=== PATIENT | male | born 1945 | race Two or more races ===

== ENCOUNTER 2018-08-14 19:59 | Inpatient (IN) | payer OTHER, MEDICAID ==
--- NOTE | 2018-08-14 20:23 | ED Physician Chart ---
ED Chief Complaint/HPI - Patient Information Date Seen:: 08/14/18 Time Seen:: 20:23 Chief Complaint:: Agitation History of Present Illness:: 73 yo male was brought from SNF to ER for evaluation of increased agitation and aggressive behavior at SNF. Patient was agitated and trying to get out of bed at ER. Allergies:: Allergies Allergy/AdvReac Type Severity Reaction Status Date / Time No Known Allergies Allergy Verified 08/14/18 20:14 Vitals:: Vital Signs - 8 hr 08/14/18 20:00 Temp 97.9 F HR 89 RR 18 BP 130/68 O2 Sat % 97 ED Review of Systems - Review of Systems General/Constitutional: No fever Skin: No rash Head: No headache Eyes: No pain ENT: No nasal drainage Neck: No neck pain Cardio Vascular: No chest pain Pulmonary: No SOB GI: No nausea, No vomiting ED Past Medical History - Past Medical History Past Medical History: HTN, Other (metabolic encephalopathy, chronic liver disease, BPH) Social History: Non Smoker, No Alcohol (former drinker), No Drug Use (former drug user) Surgical History: other (Right ulnar fracture) Psychiatricy History: Dementia, Other (Anxiety, Psychosis) Family Medical History - Family Member Mother History Unknown: Yes Ethnicity: ED Physical Exam - Physical Examination General/Constitutional: Awake Head: Atraumatic Eyes: PERRL Skin: No skin lesions ENMT: Nasal exam nl Neck: No nuchal rigidity Respiratory: No Wheeze/Rhonchi/Rales Cardio Vascular: RRR, No murmur, gallop, rubs, NL S1 S2 GI: No tenderness/rebounding/guarding Extremities: normal strength in all extremities Neuro/Psych: Normal motor strength ED Labs/Radiology/EKG Results - Lab Results Results: Laboratory Last Values WBC 6.6 Th/cmm (4.8-10.8) 08/14/18 20:30 RBC 3.96 Mil/cmm (3.80-5.80) 08/14/18 20:30 Hgb 11.6 gm/dL (12-16) L 08/14/18 20:30 Hct 35.2 % (41.0-60) L 08/14/18 20:30 MCV 88.9 fl (80-99) 08/14/18 20:30 MCH 29.3 pg (27.0-31.0) 08/14/18 20:30 MCHC Differential 33.0 pg (28.0-36.0) 08/14/18 20:30 RDW 12.0 % (11.5-20.0) 08/14/18 20:30 Plt Count 252 Th/cmm (150-400) 08/14/18 20:30 MPV 8.3 fl 08/14/18 20:30 Neutrophils % 74.6 % (40.0-80.0) 08/14/18 20:30 Lymphocytes % 15.0 % (20.0-50.0) L 08/14/18 20:30 Monocytes % 8.8 % (2.0-10.0) 08/14/18 20:30 Eosinophils % 0.9 % (0.0-5.0) 08/14/18 20:30 Basophils % 0.7 % (0.0-2.0) 08/14/18 20:30 Sodium 135 mEq/L (136-145) L 08/14/18 20:30 Potassium 3.7 mEq/L (3.5-5.1) 08/14/18 20:30 Chloride 104 mEq/L (98-107) 08/14/18 20:30 Carbon Dioxide 24.8 mEq/L (21.0-31.0) 08/14/18 20:30 Anion Gap 9.9 (7.0-16.0) 08/14/18 20:30 BUN 14 mg/dL (7-25) 08/14/18 20:30 Creatinine 0.6 mg/dL (0.7-1.3) L 08/14/18 20:30 Est GFR ( Amer) TNP 08/14/18 20:30 Est GFR (Non-Af Amer) TNP 08/14/18 20:30 BUN/Creatinine Ratio 23.3 08/14/18 20:30 Glucose 204 mg/dL (70-105) H 08/14/18 20:30 Calcium 8.9 mg/dL (8.6-10.3) 08/14/18 20:30 Total Bilirubin 1.2 mg/dL (0.3-1.0) H 08/14/18 20:30 AST 38 U/L (13-39) 08/14/18 20:30 ALT 28 U/L (7-52) 08/14/18 20:30 Alkaline Phosphatase 106 U/L (34-104) H 08/14/18 20:30 Troponin I 0.03 ng/mL (0.01-0.05) 08/14/18 20:30 B-Natriuretic Peptide 44.2 pg/mL (5.0-100.0) 08/14/18 20:30 Total Protein 6.7 gm/dL (6.0-8.3) 08/14/18 20:30 Albumin 3.5 gm/dL (4.2-5.5) L 08/14/18 20:30 Globulin 3.2 gm/dL 08/14/18 20:30 Albumin/Globulin Ratio 1.1 (1.0-1.8) 08/14/18 20:30 Triglycerides 61 mg/dL (<150) 08/14/18 20:30 Cholesterol 114 mg/dL (<200) 08/14/18 20:30 LDL Cholesterol Direct 72 mg/dL (75-193) L 08/14/18 20:30 HDL Cholesterol 33 mg/dL (23-92) 08/14/18 20:30 TSH 1.20 uIU/ml (0.34-5.60) 08/14/18 20:30 - Radiology Results Results: CXR: no focal consolidation - EKG Interpretations EKG Time:: 20:24 Rate & Rhythm: 89 bpm, sinus rhythm [place]: Normal Intervals: [place] 132, QRS 87 ED Assessment - Assessment General Assessment: Hypertension Normocytic anemia Dementia Psychosis Assessment/Comments:: CBC, CMP, Trop I, BNP, UA EKG, CXR [facility] and management ED Septic Shock - . Is Septic Shock (SBP<90, OR Lactate>4 mmol\L) present?: No - <6hrs of presentation: Vital Signs: Vital Signs - 8 hr 08/14/18 20:00 Temp 97.9 F HR 89 RR 18 BP 130/68 O2 Sat % 97 ED Reassessment (Disposition) - Reassessment Reassessment Condition:: Unchanged - Patient Disposition Discharge/Transfer:: [facility] w/in this hosp Admitting Medical Physician:: Dex Bella Admitting Psych Physician:: Severo Chaidez
[2018-08-14 20:44] LABS: % BASOPHILS 0.7 % (0.0-2.0); % EOSINOPHILS 0.9 % (0.0-5.0); % MONOCYTES 8.8 % (2.0-10.0); % NEUTROPHILS 74.6 % (40.0-80.0); EOSINOPHILE ABSOLUTE 0.1 Th/cmm (0.1-0.4); HEMATOCRIT 35.2 % (41.0-60); HEMOGLOBIN 11.6 gm/dL (12-16); MEAN CELL VOLUME 88.9 fl (80-99); MEAN CORPUSCULAR HEMOGLOBIN 29.3 pg (27.0-31.0); MEAN PLATELET VOLUME 8.3 fl; MONOCYTE ABSOLUTE 0.6 Th/cmm (0.3-1.0); NEUTROPHILE ABSOLUTE 4.9 Th/cmm (1.8-8.0); PLATELET COUNT 252 Th/cmm (150-400); RED BLOOD COUNT 3.96 Mil/cmm (3.80-5.80); WHITE BLOOD COUNT 6.6 Th/cmm (4.8-10.8)
[2018-08-14 20:58] LABS: ALB/GLOB RATIO 1.1 (1.0-1.8); ALBUMIN 3.5 gm/dL (4.2-5.5); ALKALINE PHOSPHATASE 106 U/L (34-104); ANION GAP 9.9 (7.0-16.0); BILIRUBIN,TOTAL 1.2 mg/dL (0.3-1.0); BUN - UREA NITROGEN 14 mg/dL (7-25); CALCIUM SERUM 8.9 mg/dL (8.6-10.3); CARBON DIOXIDE 24.8 mEq/L (21.0-31.0); CHLORIDE 104 mEq/L (98-107); CREATININE - SERUM 0.6 mg/dL (0.7-1.3); GLUCOSE 204 mg/dL (70-105); POTASSIUM SERUM 3.7 mEq/L (3.5-5.1); SGOT 38 U/L (13-39); SGPT/ALT 28 U/L (7-52); SODIUM SERUM 135 mEq/L (136-145); TOTAL PROTEIN,SERUM 6.7 gm/dL (6.0-8.3)
[2018-08-14 22:14] VITALS: BP 147/68
[2018-08-14] MEDS ORDERED: Magnesium Hydroxide (MOM) 30 mL UDC PO PRN (22:30)
[2018-08-14] MEDS ORDERED: Maalox 30 mL Cup PO PRN (22:30)
[2018-08-14 23:10] LABS: CHOLESTEROL 114 mg/dL (<200); HDL -HIGH DENSITY LIPOPROTEIN 33 mg/dL (23-92); TRIGLYCERIDES 61 mg/dL (<150)
--- NOTE | 2018-08-15 08:15 | Diagnostic Imaging Report ---
Portable chest x-ray HISTORY: Shortness of breath The overall heart size is difficult to assess with portable technique in a poor inspiration. Atherosclerotic calcification seen through the aorta. No acute focal pulmonary processes. Diffuse degenerative changes seen to the spine. IMPRESSION: 1. No acute focal pulmonary processes 2. Atherosclerotic vascular changes
--- NOTE | 2018-08-15 08:58 | History and Physical ---
History of Present Illness - HPI Chief Complaint: increased agitation and change of behavior HPI: 73 y/o male who presents to [facility] ER from SNF for a change in behavior noted by the staff. Patient was noted to have increased agitation and was subsequently sent to the ER for further evaluation. Patient has a history of HTN, metabolic encephalopathy, chronic liver disease, BPH, anxiety, psychosis. Patient had intial labs done in the ER which revealed the following WBC 6.6 H/H 11.6/35.2 plat 252K Na 135 K 3.7 BUN/Cr 14/0.6 glu 204 Vital Signs: Last Vital Signs Temp 99.3 F 08/15/18 06:42 Pulse 92 08/15/18 06:42 Resp 20 08/15/18 06:42 BP 125/77 08/15/18 06:42 Pulse Ox 95 08/15/18 06:42 Past Medical History Cardiovascular: Report: HTN Pulmonary: Report: No Pertinent Hx REGULATORY ASSISTANT: Report: No Pertinent Hx, Other (metabolic encephalopathy) GI: Report: No Pertinent Hx Psych: Report: Anxiety, Depression, Psychosis Musculoskeletal: Report: No Pertinent Hx, Other (right ulnar fracture) Rheumatologic: Report: No pertinent Hx Renal/: Report: Other (BPH) Endocrine: Report: No Pertinent Hx Dermatology: Report: No Pertinent Hx Other History: chronic liver disease - Past Surgical History Past Surgical History: No pertinent Hx Family Medical History - Family Member Mother History Unknown: Yes Ethnicity: Hx Family Cancer: (unknown) Hx Family Coronary Artery Disease: (unknown) Hx Family Congestive Heart Failure: (unknown) Hx Family Hypertension: (unknown) Hx Family Stroke: (unknown') Hx Family Diabetes: (unknown) Hx Family Seizures: (unknown) Hx Family Dementia: (unknown) Hx Family AIDS: (unknown) Hx Family HIV: No Hx Family COPD: (unknown) Hx Family Hepatitis: (unknown) Hx Family Psychiatric Problems: (unknown) Hx Family Tuberculosis: (unknown) Social History Smoke: No Alcohol: None Drugs: None Lives: Shelter - Medications Home Medications: Home Medication Medication Instructions Recorded Type Acetaminophen [Tylenol] 650 mg PO Q4HR PRN 08/14/18 History Amlodipine Besylate 10 mg PO DAILY 08/14/18 History Aspirin [Ecotrin] 81 mg PO DAILY 08/14/18 History Calcium Carbonate/Vitamin D3 500 mg PO BID 08/14/18 History [Chewable Calcium] Cholecalciferol (Vitamin D3) 1 tab PO DAILY 08/14/18 History [Vitamin D3] Clonazepam [Klonopin] 0.5 mg PO BID 08/14/18 History Docusate Sodium [Colace] 100 mg PO BID 08/14/18 History Donepezil Hcl [Aricept] 5 mg PO DAILY 08/14/18 History Lisinopril 40 mg PO DAILY 08/14/18 History Lorazepam [Ativan] 1 mg PO BID PRN 08/14/18 History Multivitamin w/ Minerals 1 tab PO DAILY 08/14/18 History [Theragran M] QUEtiapine Fumarate [SEROquel] 50 mg PO BID 08/14/18 History QUEtiapine Fumarate [SEROquel] 100 mg PO HS 08/14/18 History Tamsulosin [Flomax] 0.4 mg PO HS 08/14/18 History Thiamine [Vitamin B1] 100 mg PO DAILY 08/14/18 History traMADol HCl [Ultram*] 25 mg PO Q6HR PRN 08/14/18 History - Allergies Allergies/Adverse Reactions: Allergies Allergy/AdvReac Type Severity Reaction Status Date / Time No Known Allergies Allergy Verified 08/14/18 20:14 Review of Systems - Review of Systems Constitutional: Report: No Significant Eyes: Report: No Significant ENT: Report: No Significant Respiratory: Report: No Significant Cardiovascular: Report: No Significant Gastrointestinal: Report: No Significant Genitourinary: Report: No Significant Musculoskeletal: Report: No Significant Skin: Report: No Significant Neurological: Report: No Significant Physical Exam - Physical Exam HEENT: Report: Ears Nose Throat within normal limits, Pharnyx within normal limits Neck: Report: Within normal limits Cardiovascular Systems: Report: +s1/s2 noted, Regular, Rate and Rhythm Respiratory: Report: Breath Sounds are within normal limits Abdomen: Report: Non-tender to palpation Back: Report: Inspection of back is within normal limits. Extremities: Report: Non-tender to palpation. Skin: Report: Color of skin is within normal limits - Lab Results All Lab Results last 24 hours: Laboratory Results - last 24 hr 08/14/18 08/14/18 08/14/18 20:30 20:30 20:30 WBC 6.6 RBC 3.96 Hgb 11.6 L Hct 35.2 L MCV 88.9 MCH 29.3 MCHC Differential 33.0 RDW 12.0 Plt Count 252 MPV 8.3 Neutrophils % 74.6 Lymphocytes % 15.0 L Monocytes % 8.8 Eosinophils % 0.9 Basophils % 0.7 Sodium 135 L Potassium 3.7 Chloride 104 Carbon Dioxide 24.8 Anion Gap 9.9 BUN 14 Creatinine 0.6 L Est GFR ( Amer) TNP Est GFR (Non-Af Amer) TNP BUN/Creatinine Ratio 23.3 Glucose 204 H Calcium 8.9 Total Bilirubin 1.2 H AST 38 ALT 28 Alkaline Phosphatase 106 H Troponin I B-Natriuretic Peptide 44.2 Total Protein 6.7 Albumin 3.5 L Globulin 3.2 Albumin/Globulin Ratio 1.1 Triglycerides Cholesterol LDL Cholesterol Direct HDL Cholesterol TSH 08/14/18 08/14/18 08/14/18 20:30 20:30 20:30 WBC RBC Hgb Hct MCV MCH MCHC Differential RDW Plt Count MPV Neutrophils % Lymphocytes % Monocytes % Eosinophils % Basophils % Sodium Potassium Chloride Carbon Dioxide Anion Gap BUN Creatinine Est GFR ( Amer) Est GFR (Non-Af Amer) BUN/Creatinine Ratio Glucose Calcium Total Bilirubin AST ALT Alkaline Phosphatase Troponin I 0.03 B-Natriuretic Peptide Total Protein Albumin Globulin Albumin/Globulin Ratio Triglycerides 61 Cholesterol 114 LDL Cholesterol Direct 72 L HDL Cholesterol 33 TSH 1.20 - Assessment Assessment: psychosis HTN metabolic encephalopathy chronic liver disease BPH right ulnar fracture dementia anxiety psychosis - Plan Plan: [facility] continue current orders
[2018-08-15] MEDS ORDERED: Non-Formulary Item 1 EA (Lisinopril [Lisinopril] 40 MG) PO SCH (09:00)
[2018-08-15] MEDS ORDERED: Calcium Carb/Vit D 500 mg/200 U Tab PO SCH (09:00)
[2018-08-15] MEDS: Multivitamin w/ Minerals Tab PO SCH (09:31)
[2018-08-15] MEDS: Vitamin D3 2,000 IU SGL PO SCH (09:31)
[2018-08-15] MEDS: Calcium Carb/Vit D 500 mg/200 U Tab PO SCH ×2 (09:47→17:54)
[2018-08-15 10:35] LABS: CHOLESTEROL 125 mg/dL (<200); HDL -HIGH DENSITY LIPOPROTEIN 35 mg/dL (23-92); TRIGLYCERIDES 85 mg/dL (<150)
[2018-08-15] MEDS: INSULIN ASPART SLIDING SCALE 100 UNITS/ML UNIT SUBQ SCH ×3 (12:33→22:18)
[2018-08-16] MEDS: INSULIN ASPART SLIDING SCALE 100 UNITS/ML UNIT SUBQ SCH ×4 (06:41→21:21)
[2018-08-16] MEDS: Lactulose 10 Gm/15 mL 30mL UDC PO SCH (10:01)
[2018-08-16] MEDS: Vitamin D3 2,000 IU SGL PO SCH (10:04)
[2018-08-16] MEDS: Calcium Carb/Vit D 500 mg/200 U Tab PO SCH ×2 (10:05→17:05)
[2018-08-16] MEDS: Multivitamin w/ Minerals Tab PO SCH (10:05)
--- NOTE | 2018-08-17 05:30 | General Progress Note ---
Subjective - Review of Systems Service Date: 08/16/18 Subjective: Awake, alert, but confused Objective - Results Result Diagrams: 08/14/18 20:30 08/14/18 20:30 Recent Labs: Laboratory Last Values WBC 6.6 Th/cmm (4.8-10.8) 08/14/18 20:30 RBC 3.96 Mil/cmm (3.80-5.80) 08/14/18 20:30 Hgb 11.6 gm/dL (12-16) L 08/14/18 20:30 Hct 35.2 % (41.0-60) L 08/14/18 20:30 MCV 88.9 fl (80-99) 08/14/18 20:30 MCH 29.3 pg (27.0-31.0) 08/14/18 20:30 MCHC Differential 33.0 pg (28.0-36.0) 08/14/18 20:30 RDW 12.0 % (11.5-20.0) 08/14/18 20:30 Plt Count 252 Th/cmm (150-400) 08/14/18 20:30 MPV 8.3 fl 08/14/18 20:30 Neutrophils % 74.6 % (40.0-80.0) 08/14/18 20:30 Lymphocytes % 15.0 % (20.0-50.0) L 08/14/18 20:30 Monocytes % 8.8 % (2.0-10.0) 08/14/18 20:30 Eosinophils % 0.9 % (0.0-5.0) 08/14/18 20:30 Basophils % 0.7 % (0.0-2.0) 08/14/18 20:30 Sodium 135 mEq/L (136-145) L 08/14/18 20:30 Potassium 3.7 mEq/L (3.5-5.1) 08/14/18 20:30 Chloride 104 mEq/L (98-107) 08/14/18 20:30 Carbon Dioxide 24.8 mEq/L (21.0-31.0) 08/14/18 20:30 Anion Gap 9.9 (7.0-16.0) 08/14/18 20:30 BUN 14 mg/dL (7-25) 08/14/18 20:30 Creatinine 0.6 mg/dL (0.7-1.3) L 08/14/18 20:30 Est GFR ( Amer) TNP 08/14/18 20:30 Est GFR (Non-Af Amer) TNP 08/14/18 20:30 BUN/Creatinine Ratio 23.3 08/14/18 20:30 Glucose 204 mg/dL (70-105) H 08/14/18 20:30 Calcium 8.9 mg/dL (8.6-10.3) 08/14/18 20:30 Total Bilirubin 1.2 mg/dL (0.3-1.0) H 08/14/18 20:30 AST 38 U/L (13-39) 08/14/18 20:30 ALT 28 U/L (7-52) 08/14/18 20:30 Alkaline Phosphatase 106 U/L (34-104) H 08/14/18 20:30 Ammonia 61 umol/L (16-53) H 08/15/18 09:47 Troponin I 0.03 ng/mL (0.01-0.05) 08/14/18 20:30 B-Natriuretic Peptide 44.2 pg/mL (5.0-100.0) 08/14/18 20:30 Total Protein 6.7 gm/dL (6.0-8.3) 08/14/18 20:30 Albumin 3.5 gm/dL (4.2-5.5) L 08/14/18 20:30 Globulin 3.2 gm/dL 08/14/18 20:30 Albumin/Globulin Ratio 1.1 (1.0-1.8) 08/14/18 20:30 Triglycerides 85 mg/dL (<150) 08/15/18 09:47 Cholesterol 125 mg/dL (<200) 08/15/18 09:47 LDL Cholesterol Direct 74 mg/dL (75-193) L 08/15/18 09:47 HDL Cholesterol 35 mg/dL (23-92) 08/15/18 09:47 TSH 1.20 uIU/ml (0.34-5.60) 08/14/18 20:30 - Physical Exam Vitals and I&O: Vital Signs Temp 98.8 F 08/16/18 22:00 Pulse 91 08/16/18 22:00 Resp 18 08/16/18 22:00 BP 92/55 08/16/18 22:00 Pulse Ox 91 08/16/18 22:00 Intake & Output 08/16/18 08/16/18 08/17/18 06:59 18:59 06:59 Intake Total 100 500 Balance 100 500 Intake: Oral 100 500 Other: # Voids 1 3 # Bowel Movements 0 Active Medications: Current Medications Acetaminophen (Tylenol) 650 mg PO Q4HR PRN PRN Reason: Pain (Moderate) Stop: 10/13/18 22:37 Al Hydrox/Mg Hydrox/Simethicone (Maalox) 30 ml PO Q4HR PRN PRN Reason: GI DISTRESS Stop: 10/13/18 22:29 Amlodipine Besylate (Norvasc) 10 mg PO DAILY [facility] Stop: 10/14/18 08:59 Last Admin: 08/16/18 10:03 Dose: 10 mg Aspirin (Ecotrin) 81 mg PO DAILY [facility] Stop: 10/14/18 08:59 Last Admin: 08/16/18 10:05 Dose: 81 mg Calcium/Vitamin D (Oscal W/Vitamin D) 1 tab PO BID [facility] Stop: 10/14/18 09:44 Last Admin: 08/16/18 17:05 Dose: 1 tab Clonazepam (Klonopin) 0.5 mg PO TID [facility]; Protocol Stop: 10/14/18 08:59 Last Admin: 08/16/18 21:23 Dose: 0.5 mg Docusate Sodium (Colace) 100 mg PO BID [facility] Stop: 10/14/18 08:59 Last Admin: 08/16/18 17:05 Dose: 100 mg Donepezil HCl (Aricept) 5 mg PO DAILY [facility] Stop: 10/14/18 08:59 Last Admin: 08/16/18 10:04 Dose: 5 mg Insulin Aspart (Novolog Insulin Sliding Scale) 0 units SUBQ ACHS [facility]; Protocol Stop: 10/14/18 11:29 Last Admin: 08/16/18 21:21 Dose: 2 units Lactulose (Cephulac) 15 gm PO DAILY [facility] Stop: 10/15/18 08:59 Last Admin: 08/16/18 10:01 Dose: 15 gm Lisinopril (Zestril) 40 mg PO DAILY [facility] Stop: 10/14/18 08:59 Last Admin: 08/16/18 10:03 Dose: 40 mg Lorazepam (Ativan) 1 mg PO BID PRN; Protocol PRN Reason: Anxiety Stop: 10/13/18 22:37 Last Admin: 08/15/18 01:16 Dose: 1 mg Magnesium Hydroxide (Milk Of Magnesia) 30 ml PO HS PRN PRN Reason: Constipation Quetiapine Fumarate (Seroquel) 12.5 mg PO TID [facility]; Protocol Stop: 10/14/18 08:59 Last Admin: 08/16/18 21:24 Dose: 12.5 mg Quetiapine Fumarate (Seroquel) 25 mg PO HS [facility]MO; Protocol Stop: 10/14/18 20:59 Last Admin: 08/16/18 21:30 Dose: 25 mg Tamsulosin HCl (Flomax) 0.4 mg PO HS [facility]MO Stop: 10/14/18 20:59 Last Admin: 08/16/18 21:23 Dose: 0.4 mg Thiamine HCl (Vitamin B1) 100 mg PO DAILY [facility] Stop: 10/14/18 08:59 Last Admin: 08/16/18 10:06 Dose: 100 mg Tramadol HCl (Ultram) 25 mg PO Q6HR PRN PRN Reason: Pain (Severe) (LEVEL 7-10) Stop: 10/13/18 22:37 Vitamin D (Vitamin D3) 2,000 iu PO DAILY [facility] Stop: 10/14/18 08:59 Last Admin: 08/16/18 10:04 Dose: 2,000 iu Zolpidem Tartrate (Ambien) 5 mg PO HS PRN PRN Reason: Insomnia Stop: 10/13/18 22:29 General: Alert HEENT: Atraumatic, PERRLA, EOMI Neck: Supple, no JVD Cardiovascular: Regular rate, Normal S1, Normal S2 Lungs: Clear to auscultation Abdomen: Bowel sounds, Soft Extremities: no Clubbing, no Cyanosis, no Edema Assessment/Plan - Assessment Assessment: psychosis HTN metabolic encephalopathy chronic liver disease BPH right ulnar fracture dementia anxiety - Plan Plan: admit to [facility] continue current orders Nutritional Asmnt/Malnutr-PDOC - Dietary Evaluation Malnutrition Findings (Please click <Entered> for more info): Nutritional Asmnt/Malnutrition Start: 08/15/18 14: 11 Text: Status: Complete Freq: Protocol: Document 08/15/18 14:11 LCDASHG (Rec: 08/15/18 14:29 [email or web address] [id number]) Nutritional Asmnt/Malnutrition Patient General Information Nutritional Screening High Risk Diagnosis psychosis, confusion Pertinent Medical Hx/Surgical Hx HTN, metabolic encephalopathy, chronic liver disease, BPH, right ulnar fracture, dementia , anxiety, psychosis Subjective Information Pt seen in [facility] in the [place], very confused, not able to communicate. Per SENIOR NETWORK SECURITY ARCHITECT, pt consumed about 50% of breakfast today. Pt needs total assist with meals. blood sugar 204 at admission noted. Current Diet Order/ Nutrition Support pureed Pertinent Medications oscal w/vit D, colace, novolog , seroquel, vit B1, vit D3 Pertinent Labs 08/14 Na 135, Cr 0.6, glucose 204, alb 3.5 Nutritional Hx/Data Height 1.6 m Height (Calculated Centimeters) 160.0 Current Weight (lbs) 54.431 kg Weight (Calculated Kilograms) 54.4 Weight (Calculated Grams) 63047.1 Colver Body Weight 124 Body Mass Index (BMI) 21.2 Weight Status Approriate GI Symptoms GI Symptoms None Last BM 08/14 Difficult in: None Skin Integrity/Comment: intact Current %PO Fair (50-74%) Estimated Nutritional Goals BEE in Kcals: Using Current wt Calories/Kcals/Kg 25-30 Kcals Calculated [id number] Protein: Using Current wt Protein g/k Protein Calculated 55 Fluid: ml 1375-1650ml (1ml/kcal) Nutritional Problem 1. Problem Problem altered nutrition related labs Etiology hyperglycemia Signs/Symptoms: glucose 204 at admission Malnutrition Alert Is there a minimum of two criteria No selected? Query Text:Check all the applicable criteria. A minimum of two criteria are recommended for diagnosis of either severe or non-severe malnutrition. Malnutrition Related to Morbid Obesity Malnutrition related to morbid obesity No Intervention/Recommendation Comments 1. Continue with pureed diet as ordered. Monitor blood sugar. Consider NCS/CCHO diet if glucose continue high. 2. Monitor PO intake, wt, labs and skin integrity 3. F/U as moderate risk in 3-5 days, 08/18-08/20, PO check Expected Outcomes/Goals Expected Outcomes/Goals 1. PO intake to meet at least 75% of nutritional needs. 2. Wt stability, skin to remain intact, labs to approach WNL.
--- NOTE | 2018-08-17 05:31 | General Progress Note ---
Subjective - Review of Systems Service Date: 08/17/18 Subjective: Awake, alert, but confused. T 98.8 P 91 BP 92/55 R 67 Objective - Results Result Diagrams: 08/14/18 20:30 08/14/18 20:30 Recent Labs: Laboratory Last Values WBC 6.6 Th/cmm (4.8-10.8) 08/14/18 20:30 RBC 3.96 Mil/cmm (3.80-5.80) 08/14/18 20:30 Hgb 11.6 gm/dL (12-16) L 08/14/18 20:30 Hct 35.2 % (41.0-60) L 08/14/18 20:30 MCV 88.9 fl (80-99) 08/14/18 20:30 MCH 29.3 pg (27.0-31.0) 08/14/18 20:30 MCHC Differential 33.0 pg (28.0-36.0) 08/14/18 20:30 RDW 12.0 % (11.5-20.0) 08/14/18 20:30 Plt Count 252 Th/cmm (150-400) 08/14/18 20:30 MPV 8.3 fl 08/14/18 20:30 Neutrophils % 74.6 % (40.0-80.0) 08/14/18 20:30 Lymphocytes % 15.0 % (20.0-50.0) L 08/14/18 20:30 Monocytes % 8.8 % (2.0-10.0) 08/14/18 20:30 Eosinophils % 0.9 % (0.0-5.0) 08/14/18 20:30 Basophils % 0.7 % (0.0-2.0) 08/14/18 20:30 Sodium 135 mEq/L (136-145) L 08/14/18 20:30 Potassium 3.7 mEq/L (3.5-5.1) 08/14/18 20:30 Chloride 104 mEq/L (98-107) 08/14/18 20:30 Carbon Dioxide 24.8 mEq/L (21.0-31.0) 08/14/18 20:30 Anion Gap 9.9 (7.0-16.0) 08/14/18 20:30 BUN 14 mg/dL (7-25) 08/14/18 20:30 Creatinine 0.6 mg/dL (0.7-1.3) L 08/14/18 20:30 Est GFR ( Amer) TNP 08/14/18 20:30 Est GFR (Non-Af Amer) TNP 08/14/18 20:30 BUN/Creatinine Ratio 23.3 08/14/18 20:30 Glucose 204 mg/dL (70-105) H 08/14/18 20:30 Calcium 8.9 mg/dL (8.6-10.3) 08/14/18 20:30 Total Bilirubin 1.2 mg/dL (0.3-1.0) H 08/14/18 20:30 AST 38 U/L (13-39) 08/14/18 20:30 ALT 28 U/L (7-52) 08/14/18 20:30 Alkaline Phosphatase 106 U/L (34-104) H 08/14/18 20:30 Ammonia 61 umol/L (16-53) H 08/15/18 09:47 Troponin I 0.03 ng/mL (0.01-0.05) 08/14/18 20:30 B-Natriuretic Peptide 44.2 pg/mL (5.0-100.0) 08/14/18 20:30 Total Protein 6.7 gm/dL (6.0-8.3) 08/14/18 20:30 Albumin 3.5 gm/dL (4.2-5.5) L 08/14/18 20:30 Globulin 3.2 gm/dL 08/14/18 20:30 Albumin/Globulin Ratio 1.1 (1.0-1.8) 08/14/18 20:30 Triglycerides 85 mg/dL (<150) 08/15/18 09:47 Cholesterol 125 mg/dL (<200) 08/15/18 09:47 LDL Cholesterol Direct 74 mg/dL (75-193) L 08/15/18 09:47 HDL Cholesterol 35 mg/dL (23-92) 08/15/18 09:47 TSH 1.20 uIU/ml (0.34-5.60) 08/14/18 20:30 - Physical Exam Vitals and I&O: Vital Signs Temp 98.8 F 08/16/18 22:00 Pulse 91 08/16/18 22:00 Resp 18 08/16/18 22:00 BP 92/55 08/16/18 22:00 Pulse Ox 91 08/16/18 22:00 Intake & Output 08/16/18 08/16/18 08/17/18 06:59 18:59 06:59 Intake Total 100 500 Balance 100 500 Intake: Oral 100 500 Other: # Voids 1 3 # Bowel Movements 0 Active Medications: Current Medications Acetaminophen (Tylenol) 650 mg PO Q4HR PRN PRN Reason: Pain (Moderate) Stop: 10/13/18 22:37 Al Hydrox/Mg Hydrox/Simethicone (Maalox) 30 ml PO Q4HR PRN PRN Reason: GI DISTRESS Stop: 10/13/18 22:29 Amlodipine Besylate (Norvasc) 10 mg PO DAILY [facility] Stop: 10/14/18 08:59 Last Admin: 08/16/18 10:03 Dose: 10 mg Aspirin (Ecotrin) 81 mg PO DAILY [facility] Stop: 10/14/18 08:59 Last Admin: 08/16/18 10:05 Dose: 81 mg Calcium/Vitamin D (Oscal W/Vitamin D) 1 tab PO BID [facility] Stop: 10/14/18 09:44 Last Admin: 08/16/18 17:05 Dose: 1 tab Clonazepam (Klonopin) 0.5 mg PO TID [facility]; Protocol Stop: 10/14/18 08:59 Last Admin: 08/16/18 21:23 Dose: 0.5 mg Docusate Sodium (Colace) 100 mg PO BID [facility] Stop: 10/14/18 08:59 Last Admin: 08/16/18 17:05 Dose: 100 mg Donepezil HCl (Aricept) 5 mg PO DAILY [facility] Stop: 10/14/18 08:59 Last Admin: 08/16/18 10:04 Dose: 5 mg Insulin Aspart (Novolog Insulin Sliding Scale) 0 units SUBQ ACHS [facility]; Protocol Stop: 10/14/18 11:29 Last Admin: 08/16/18 21:21 Dose: 2 units Lactulose (Cephulac) 15 gm PO DAILY [facility] Stop: 10/15/18 08:59 Last Admin: 08/16/18 10:01 Dose: 15 gm Lisinopril (Zestril) 40 mg PO DAILY [facility] Stop: 10/14/18 08:59 Last Admin: 08/16/18 10:03 Dose: 40 mg Lorazepam (Ativan) 1 mg PO BID PRN; Protocol PRN Reason: Anxiety Stop: 10/13/18 22:37 Last Admin: 08/15/18 01:16 Dose: 1 mg Magnesium Hydroxide (Milk Of Magnesia) 30 ml PO HS PRN PRN Reason: Constipation Quetiapine Fumarate (Seroquel) 12.5 mg PO TID [facility]; Protocol Stop: 10/14/18 08:59 Last Admin: 08/16/18 21:24 Dose: 12.5 mg Quetiapine Fumarate (Seroquel) 25 mg PO HS [facility]; Protocol Stop: 10/14/18 20:59 Last Admin: 08/16/18 21:30 Dose: 25 mg Tamsulosin HCl (Flomax) 0.4 mg PO HS [facility] Stop: 10/14/18 20:59 Last Admin: 08/16/18 21:23 Dose: 0.4 mg Thiamine HCl (Vitamin B1) 100 mg PO DAILY [facility] Stop: 10/14/18 08:59 Last Admin: 08/16/18 10:06 Dose: 100 mg Tramadol HCl (Ultram) 25 mg PO Q6HR PRN PRN Reason: Pain (Severe) (LEVEL 7-10) Stop: 10/13/18 22:37 Vitamin D (Vitamin D3) 2,000 iu PO DAILY [facility] Stop: 10/14/18 08:59 Last Admin: 08/16/18 10:04 Dose: 2,000 iu Zolpidem Tartrate (Ambien) 5 mg PO HS PRN PRN Reason: Insomnia Stop: 10/13/18 22:29 General: Alert HEENT: Atraumatic, PERRLA, EOMI Neck: Supple, no JVD Cardiovascular: Regular rate, Normal S1, Normal S2 Lungs: Clear to auscultation Abdomen: Bowel sounds, Soft Extremities: no Clubbing, no Cyanosis, no Edema Assessment/Plan - Assessment Assessment: psychosis HTN metabolic encephalopathy chronic liver disease BPH right ulnar fracture dementia anxiety - Plan Plan: admit to [facility] continue current orders Nutritional Asmnt/Malnutr-PDOC - Dietary Evaluation Malnutrition Findings (Please click <Entered> for more info): Nutritional Asmnt/Malnutrition Start: 08/15/18 14: 11 Text: Status: Complete Freq: Protocol: Document 08/15/18 14:11 LCDASHG (Rec: 08/15/18 14:29 [email or web address]) Nutritional Asmnt/Malnutrition Patient General Information Nutritional Screening High Risk Diagnosis psychosis, confusion Pertinent Medical Hx/Surgical Hx HTN, metabolic encephalopathy, chronic liver disease, BPH, right ulnar fracture, dementia , anxiety, psychosis Subjective Information Pt seen in mirian-chair in the [place], very confused, not able to communicate. Per SOUND INSTALLATION WORKER, pt consumed about 50% of breakfast today. Pt needs total assist with meals. blood sugar 204 at admission noted. Current Diet Order/ Nutrition Support pureed Pertinent Medications oscal w/vit D, colace, novolog , seroquel, vit B1, vit D3 Pertinent Labs 08/14 Na 135, Cr 0.6, glucose 204, alb 3.5 Nutritional Hx/Data Height 1.6 m Height (Calculated Centimeters) 160.0 Current Weight (lbs) 54.431 kg Weight (Calculated Kilograms) 54.4 Weight (Calculated Grams) 40795.1 [place] Body Weight 124 Body Mass Index (BMI) 21.2 Weight Status Approriate GI Symptoms GI Symptoms None Last BM 08/14 Difficult in: None Skin Integrity/Comment: intact Current %PO Fair (50-74%) Estimated Nutritional Goals BEE in Kcals: Using Current wt Calories/Kcals/Kg 25-30 Kcals Calculated 4454-8759 Protein: Using Current wt Protein g/k Protein Calculated 55 Fluid: ml 1375-1650ml (1ml/kcal) Nutritional Problem 1. Problem Problem altered nutrition related labs Etiology hyperglycemia Signs/Symptoms: glucose 204 at admission Malnutrition Alert Is there a minimum of two criteria No selected? Query Text:Check all the applicable criteria. A minimum of two criteria are recommended for diagnosis of either severe or non-severe malnutrition. Malnutrition Related to Morbid Obesity Malnutrition related to morbid obesity No Intervention/Recommendation Comments 1. Continue with pureed diet as ordered. Monitor blood sugar. Consider NCS/CCHO diet if glucose continue high. 2. Monitor PO intake, wt, labs and skin integrity 3. F/U as moderate risk in 3-5 days, 08/18-08/20, PO check Expected Outcomes/Goals Expected Outcomes/Goals 1. PO intake to meet at least 75% of nutritional needs. 2. Wt stability, skin to remain intact, labs to approach WNL.
[2018-08-17] MEDS: INSULIN ASPART SLIDING SCALE 100 UNITS/ML UNIT SUBQ SCH ×4 (07:01→21:12)
[2018-08-17] MEDS: Lactulose 10 Gm/15 mL 30mL UDC PO SCH (09:44)
[2018-08-17] MEDS: Vitamin D3 2,000 IU SGL PO SCH (09:47)
[2018-08-17] MEDS: Calcium Carb/Vit D 500 mg/200 U Tab PO SCH ×2 (09:49→17:24)
[2018-08-17] MEDS: Multivitamin w/ Minerals Tab PO SCH (09:49)
[2018-08-17 10:45] LABS: ANION GAP 11.7 (7.0-16.0); BUN - UREA NITROGEN 26 mg/dL (7-25); CALCIUM SERUM 9.6 mg/dL (8.6-10.3); CARBON DIOXIDE 24.4 mEq/L (21.0-31.0); CHLORIDE 104 mEq/L (98-107); CREATININE - SERUM 0.8 mg/dL (0.7-1.3); GLUCOSE 190 mg/dL (70-105); POTASSIUM SERUM 3.1 mEq/L (3.5-5.1); SODIUM SERUM 137 mEq/L (136-145)
--- NOTE | 2018-08-18 04:56 | General Progress Note ---
Subjective - Review of Systems Service Date: 08/18/18 Subjective: Awake, alert, but confused. Objective - Results Result Diagrams: 08/14/18 20:30 08/17/18 10:21 Recent Labs: Laboratory Last Values WBC 6.6 Th/cmm (4.8-10.8) 08/14/18 20:30 RBC 3.96 Mil/cmm (3.80-5.80) 08/14/18 20:30 Hgb 11.6 gm/dL (12-16) L 08/14/18 20:30 Hct 35.2 % (41.0-60) L 08/14/18 20:30 MCV 88.9 fl (80-99) 08/14/18 20:30 MCH 29.3 pg (27.0-31.0) 08/14/18 20:30 MCHC Differential 33.0 pg (28.0-36.0) 08/14/18 20:30 RDW 12.0 % (11.5-20.0) 08/14/18 20:30 Plt Count 252 Th/cmm (150-400) 08/14/18 20:30 MPV 8.3 fl 08/14/18 20:30 Neutrophils % 74.6 % (40.0-80.0) 08/14/18 20:30 Lymphocytes % 15.0 % (20.0-50.0) L 08/14/18 20:30 Monocytes % 8.8 % (2.0-10.0) 08/14/18 20:30 Eosinophils % 0.9 % (0.0-5.0) 08/14/18 20:30 Basophils % 0.7 % (0.0-2.0) 08/14/18 20:30 Sodium 137 mEq/L (136-145) 08/17/18 10:21 Potassium 3.1 mEq/L (3.5-5.1) L 08/17/18 10:21 Chloride 104 mEq/L (98-107) 08/17/18 10:21 Carbon Dioxide 24.4 mEq/L (21.0-31.0) 08/17/18 10:21 Anion Gap 11.7 (7.0-16.0) 08/17/18 10:21 BUN 26 mg/dL (7-25) H 08/17/18 10:21 Creatinine 0.8 mg/dL (0.7-1.3) 08/17/18 10:21 Est GFR ( Amer) TNP 08/17/18 10:21 Est GFR (Non-Af Amer) TNP 08/17/18 10:21 BUN/Creatinine Ratio 32.5 08/17/18 10:21 Glucose 190 mg/dL (70-105) H 08/17/18 10:21 Calcium 9.6 mg/dL (8.6-10.3) 08/17/18 10:21 Total Bilirubin 1.2 mg/dL (0.3-1.0) H 08/14/18 20:30 AST 38 U/L (13-39) 08/14/18 20:30 ALT 28 U/L (7-52) 08/14/18 20:30 Alkaline Phosphatase 106 U/L (34-104) H 08/14/18 20:30 Ammonia 52 umol/L (16-53) 08/17/18 10:21 Troponin I 0.03 ng/mL (0.01-0.05) 08/14/18 20:30 B-Natriuretic Peptide 44.2 pg/mL (5.0-100.0) 08/14/18 20:30 Total Protein 6.7 gm/dL (6.0-8.3) 08/14/18 20:30 Albumin 3.5 gm/dL (4.2-5.5) L 08/14/18 20:30 Globulin 3.2 gm/dL 08/14/18 20:30 Albumin/Globulin Ratio 1.1 (1.0-1.8) 08/14/18 20:30 Triglycerides 85 mg/dL (<150) 08/15/18 09:47 Cholesterol 125 mg/dL (<200) 08/15/18 09:47 LDL Cholesterol Direct 74 mg/dL (75-193) L 08/15/18 09:47 HDL Cholesterol 35 mg/dL (23-92) 08/15/18 09:47 TSH 1.20 uIU/ml (0.34-5.60) 08/14/18 20:30 - Physical Exam Vitals and I&O: Vital Signs Temp 98.5 F 08/17/18 14:00 Pulse 103 08/17/18 14:00 Resp 18 08/17/18 14:00 BP 128/64 08/17/18 14:00 Pulse Ox 98 08/17/18 14:00 Intake & Output 08/17/18 08/17/18 08/18/18 06:59 18:59 06:59 Intake Total 500 1550 Balance 500 1550 Intake: Oral 500 1550 Other: # Voids 3 4 # Bowel Movements 0 0 Active Medications: Current Medications Acetaminophen (Tylenol) 650 mg PO Q4HR PRN PRN Reason: Pain (Moderate) Stop: 10/13/18 22:37 Al Hydrox/Mg Hydrox/Simethicone (Maalox) 30 ml PO Q4HR PRN PRN Reason: GI DISTRESS Stop: 10/13/18 22:29 Amlodipine Besylate (Norvasc) 10 mg PO DAILY [facility] Stop: 10/14/18 08:59 Last Admin: 08/17/18 08:43 Dose: Not Given Aspirin (Ecotrin) 81 mg PO DAILY [facility] Stop: 10/14/18 08:59 Last Admin: 08/17/18 09:48 Dose: 81 mg Calcium/Vitamin D (Oscal W/Vitamin D) 1 tab PO BID [facility] Stop: 10/14/18 09:44 Last Admin: 08/17/18 17:24 Dose: 1 tab Clonazepam (Klonopin) 1 mg PO TID [facility]; Protocol Stop: 10/16/18 13:59 Last Admin: 08/17/18 21:12 Dose: 1 mg Docusate Sodium (Colace) 100 mg PO BID [facility] Stop: 10/14/18 08:59 Last Admin: 08/17/18 17:24 Dose: 100 mg Donepezil HCl (Aricept) 5 mg PO DAILY [facility] Stop: 10/14/18 08:59 Last Admin: 08/17/18 09:48 Dose: 5 mg Insulin Aspart (Novolog Insulin Sliding Scale) 0 units SUBQ ACHS [facility]; Protocol Stop: 10/14/18 11:29 Last Admin: 08/17/18 21:12 Dose: 4 units Lactulose (Cephulac) 15 gm PO DAILY [facility] Stop: 10/15/18 08:59 Last Admin: 08/17/18 09:44 Dose: 15 gm Lisinopril (Zestril) 40 mg PO DAILY [facility] Stop: 10/14/18 08:59 Last Admin: 08/17/18 08:44 Dose: Not Given Lorazepam (Ativan) 1 mg PO BID PRN; Protocol PRN Reason: Anxiety Stop: 10/13/18 22:37 Last Admin: 08/15/18 01:16 Dose: 1 mg Magnesium Hydroxide (Milk Of Magnesia) 30 ml PO HS PRN PRN Reason: Constipation Potassium Chloride (Klor-Con) 40 meq PO DAILY [facility] Stop: 10/17/18 08:59 Quetiapine Fumarate (Seroquel) 25 mg PO HS [facility]; Protocol Stop: 10/14/18 20:59 Last Admin: 08/17/18 21:12 Dose: 25 mg Quetiapine Fumarate (Seroquel) 12.5 mg PO DAILY [facility]; Protocol Stop: 10/17/18 08:59 Tamsulosin HCl (Flomax) 0.4 mg PO HS [facility] Stop: 10/14/18 20:59 Last Admin: 08/17/18 21:12 Dose: 0.4 mg Thiamine HCl (Vitamin B1) 100 mg PO DAILY [facility] Stop: 10/14/18 08:59 Last Admin: 08/17/18 09:47 Dose: 100 mg Tramadol HCl (Ultram) 25 mg PO Q6HR PRN PRN Reason: Pain (Severe) (LEVEL 7-10) Stop: 10/13/18 22:37 Vitamin D (Vitamin D3) 2,000 iu PO DAILY [facility] Stop: 10/14/18 08:59 Last Admin: 08/17/18 09:47 Dose: 2,000 iu Zolpidem Tartrate (Ambien) 5 mg PO HS PRN PRN Reason: Insomnia Stop: 10/13/18 22:29 General: Alert HEENT: Atraumatic, PERRLA, EOMI Neck: Supple, no JVD Cardiovascular: Regular rate, Normal S1, Normal S2 Lungs: Clear to auscultation Abdomen: Bowel sounds, Soft Extremities: no Clubbing, no Cyanosis, no Edema Assessment/Plan - Assessment Assessment: psychosis HTN hepatic encephalopathy chronic liver disease BPH right ulnar fracture dementia anxiety hypokalemia ... Kdur 40meq x 1 dose - Plan Plan: admit [facility] continue current orders Nutritional Asmnt/Malnutr-PDOC - Dietary Evaluation Malnutrition Findings (Please click <Entered> for more info): Nutritional Asmnt/Malnutrition Start: 08/15/18 14: 11 Text: Status: Complete Freq: Protocol: Document 08/15/18 14:11 RENEESHARDA (Rec: 08/15/18 14:29 YOVANY [email or web address]) Nutritional Asmnt/Malnutrition Patient General Information Nutritional Screening High Risk Diagnosis psychosis, confusion Pertinent Medical Hx/Surgical Hx HTN, metabolic encephalopathy, chronic liver disease, BPH, right ulnar fracture, dementia , anxiety, psychosis Subjective Information Pt seen in mirian-chair in the [place], very confused, not able to communicate. Per MANAGER FIRE, pt consumed about 50% of breakfast today. Pt needs total assist with meals. blood sugar 204 at admission noted. Current Diet Order/ Nutrition Support pureed Pertinent Medications oscal w/vit D, colace, novolog , seroquel, vit B1, vit D3 Pertinent Labs 08/14 Na 135, Cr 0.6, glucose 204, alb 3.5 Nutritional Hx/Data Height 1.6 m Height (Calculated Centimeters) 160.0 Current Weight (lbs) 54.431 kg Weight (Calculated Kilograms) 54.4 Weight (Calculated Grams) 95467.1 [place] Body Weight 124 Body Mass Index (BMI) 21.2 Weight Status Approriate GI Symptoms GI Symptoms None Last BM 08/14 Difficult in: None Skin Integrity/Comment: intact Current %PO Fair (50-74%) Estimated Nutritional Goals BEE in Kcals: Using Current wt Calories/Kcals/Kg 25-30 Kcals Calculated 3339-2998 Protein: Using Current wt Protein g/k Protein Calculated 55 Fluid: ml 1375-1650ml (1ml/kcal) Nutritional Problem 1. Problem Problem altered nutrition related labs Etiology hyperglycemia Signs/Symptoms: glucose 204 at admission Malnutrition Alert Is there a minimum of two criteria No selected? Query Text:Check all the applicable criteria. A minimum of two criteria are recommended for diagnosis of either severe or non-severe malnutrition. Malnutrition Related to Morbid Obesity Malnutrition related to morbid obesity No Intervention/Recommendation Comments 1. Continue with pureed diet as ordered. Monitor blood sugar. Consider NCS/CCHO diet if glucose continue high. 2. Monitor PO intake, wt, labs and skin integrity 3. F/U as moderate risk in 3-5 days, 08/18-08/20, PO check Expected Outcomes/Goals Expected Outcomes/Goals 1. PO intake to meet at least 75% of nutritional needs. 2. Wt stability, skin to remain intact, labs to approach WNL.
[2018-08-18] MEDS: INSULIN ASPART SLIDING SCALE 100 UNITS/ML UNIT SUBQ SCH ×4 (06:39→21:49)
[2018-08-18] MEDS ORDERED: Potassium Chloride 20 mEq ER Tab PO SCH (09:00)
[2018-08-18] MEDS: Vitamin D3 2,000 IU SGL PO SCH (09:19)
[2018-08-18] MEDS: Calcium Carb/Vit D 500 mg/200 U Tab PO SCH ×2 (09:19→16:28)
[2018-08-18] MEDS: Multivitamin w/ Minerals Tab PO SCH (09:19)
--- NOTE | 2018-08-19 05:38 | General Progress Note ---
Subjective - Review of Systems Service Date: 08/19/18 Subjective: Awake, alert, but confused. T 97.0 BP 145/77 P 99 R 19 Objective - Results Result Diagrams: 08/14/18 20:30 08/17/18 10:21 Recent Labs: Laboratory Last Values WBC 6.6 Th/cmm (4.8-10.8) 08/14/18 20:30 RBC 3.96 Mil/cmm (3.80-5.80) 08/14/18 20:30 Hgb 11.6 gm/dL (12-16) L 08/14/18 20:30 Hct 35.2 % (41.0-60) L 08/14/18 20:30 MCV 88.9 fl (80-99) 08/14/18 20:30 MCH 29.3 pg (27.0-31.0) 08/14/18 20:30 MCHC Differential 33.0 pg (28.0-36.0) 08/14/18 20:30 RDW 12.0 % (11.5-20.0) 08/14/18 20:30 Plt Count 252 Th/cmm (150-400) 08/14/18 20:30 MPV 8.3 fl 08/14/18 20:30 Neutrophils % 74.6 % (40.0-80.0) 08/14/18 20:30 Lymphocytes % 15.0 % (20.0-50.0) L 08/14/18 20:30 Monocytes % 8.8 % (2.0-10.0) 08/14/18 20:30 Eosinophils % 0.9 % (0.0-5.0) 08/14/18 20:30 Basophils % 0.7 % (0.0-2.0) 08/14/18 20:30 Sodium 137 mEq/L (136-145) 08/17/18 10:21 Potassium 3.1 mEq/L (3.5-5.1) L 08/17/18 10:21 Chloride 104 mEq/L (98-107) 08/17/18 10:21 Carbon Dioxide 24.4 mEq/L (21.0-31.0) 08/17/18 10:21 Anion Gap 11.7 (7.0-16.0) 08/17/18 10:21 BUN 26 mg/dL (7-25) H 08/17/18 10:21 Creatinine 0.8 mg/dL (0.7-1.3) 08/17/18 10:21 Est GFR ( Amer) TNP 08/17/18 10:21 Est GFR (Non-Af Amer) TNP 08/17/18 10:21 BUN/Creatinine Ratio 32.5 08/17/18 10:21 Glucose 190 mg/dL (70-105) H 08/17/18 10:21 Calcium 9.6 mg/dL (8.6-10.3) 08/17/18 10:21 Total Bilirubin 1.2 mg/dL (0.3-1.0) H 08/14/18 20:30 AST 38 U/L (13-39) 08/14/18 20:30 ALT 28 U/L (7-52) 08/14/18 20:30 Alkaline Phosphatase 106 U/L (34-104) H 08/14/18 20:30 Ammonia 52 umol/L (16-53) 08/17/18 10:21 Troponin I 0.03 ng/mL (0.01-0.05) 08/14/18 20:30 B-Natriuretic Peptide 44.2 pg/mL (5.0-100.0) 08/14/18 20:30 Total Protein 6.7 gm/dL (6.0-8.3) 08/14/18 20:30 Albumin 3.5 gm/dL (4.2-5.5) L 08/14/18 20:30 Globulin 3.2 gm/dL 08/14/18 20:30 Albumin/Globulin Ratio 1.1 (1.0-1.8) 08/14/18 20:30 Triglycerides 85 mg/dL (<150) 08/15/18 09:47 Cholesterol 125 mg/dL (<200) 08/15/18 09:47 LDL Cholesterol Direct 74 mg/dL (75-193) L 08/15/18 09:47 HDL Cholesterol 35 mg/dL (23-92) 08/15/18 09:47 TSH 1.20 uIU/ml (0.34-5.60) 08/14/18 20:30 - Physical Exam Vitals and I&O: Vital Signs Temp 98.3 F 09/23/18 04:32 Pulse 87 08/19/18 04:32 Resp 19 08/19/18 04:32 BP 145/77 08/19/18 04:32 Pulse Ox 95 08/19/18 04:32 Intake & Output 08/18/18 08/18/18 08/19/18 06:59 18:59 06:59 Intake Total 480 Balance 480 Intake: Oral 480 Other: # Voids 2 Active Medications: Current Medications Acetaminophen (Tylenol) 650 mg PO Q4HR PRN PRN Reason: Pain (Moderate) Stop: 10/13/18 22:37 Last Admin: 08/19/18 03:18 Dose: 650 mg Al Hydrox/Mg Hydrox/Simethicone (Maalox) 30 ml PO Q4HR PRN PRN Reason: GI DISTRESS Stop: 10/13/18 22:29 Amlodipine Besylate (Norvasc) 10 mg PO DAILY [facility] Stop: 10/14/18 08:59 Last Admin: 08/18/18 09:19 Dose: Not Given Aspirin (Ecotrin) 81 mg PO DAILY [facility] Stop: 10/14/18 08:59 Last Admin: 08/18/18 09:18 Dose: 81 mg Calcium/Vitamin D (Oscal W/Vitamin D) 1 tab PO BID [facility] Stop: 10/14/18 09:44 Last Admin: 08/18/18 16:28 Dose: 1 tab Clonazepam (Klonopin) 1 mg PO TID [facility]; Protocol Stop: 10/16/18 13:59 Last Admin: 08/18/18 21:02 Dose: 1 mg Docusate Sodium (Colace) 100 mg PO BID [facility] Stop: 10/14/18 08:59 Last Admin: 08/18/18 16:28 Dose: 100 mg Donepezil HCl (Aricept) 5 mg PO DAILY [facility] Stop: 10/14/18 08:59 Last Admin: 08/18/18 09:18 Dose: 5 mg Insulin Aspart (Novolog Insulin Sliding Scale) 0 units SUBQ ACHS [facility]; Protocol Stop: 10/14/18 11:29 Last Admin: 08/18/18 21:49 Dose: 4 units Lisinopril (Zestril) 40 mg PO DAILY [facility] Stop: 10/14/18 08:59 Last Admin: 08/18/18 09:19 Dose: Not Given Lorazepam (Ativan) 1 mg PO BID PRN; Protocol PRN Reason: Anxiety Stop: 10/13/18 22:37 Last Admin: 08/18/18 21:50 Dose: 1 mg Magnesium Hydroxide (Milk Of Magnesia) 30 ml PO HS PRN PRN Reason: Constipation Potassium Chloride (Klor-Con) 40 meq PO DAILY [facility] Stop: 10/17/18 08:59 Last Admin: 08/18/18 09:18 Dose: 40 meq Quetiapine Fumarate (Seroquel) 25 mg PO HS [facility]; Protocol Stop: 10/14/18 20:59 Last Admin: 08/18/18 21:03 Dose: 25 mg Quetiapine Fumarate (Seroquel) 12.5 mg PO DAILY [facility]; Protocol Stop: 10/17/18 08:59 Last Admin: 08/18/18 09:18 Dose: 12.5 mg Tamsulosin HCl (Flomax) 0.4 mg PO HS [facility] Stop: 10/14/18 20:59 Last Admin: 08/18/18 21:03 Dose: 0.4 mg Thiamine HCl (Vitamin B1) 100 mg PO DAILY [facility] Stop: 10/14/18 08:59 Last Admin: 08/18/18 09:19 Dose: 100 mg Tramadol HCl (Ultram) 25 mg PO Q6HR PRN PRN Reason: Pain (Severe) (LEVEL 7-10) Stop: 10/13/18 22:37 Vitamin D (Vitamin D3) 2,000 iu PO DAILY [facility] Stop: 10/14/18 08:59 Last Admin: 08/18/18 09:19 Dose: Not Given Zolpidem Tartrate (Ambien) 5 mg PO HS PRN PRN Reason: Insomnia Stop: 10/13/18 22:29 Last Admin: 08/18/18 21:04 Dose: 5 mg General: Alert HEENT: Atraumatic, PERRLA, EOMI Neck: Supple, no JVD Cardiovascular: Regular rate, Normal S1, Normal S2 Lungs: Clear to auscultation Abdomen: Bowel sounds, Soft Extremities: no Clubbing, no Cyanosis, no Edema Assessment/Plan - Assessment Assessment: psychosis ... HTN hepatic encephalopathy ... on lactulose chronic liver disease BPH right ulnar fracture dementia anxiety hypokalemia ... Kdur 40meq x 1 dose - Plan Plan: admit to [facility] continue current orders Nutritional Asmnt/Malnutr-PDOC - Dietary Evaluation Malnutrition Findings (Please click <Entered> for more info): Nutritional Asmnt/Malnutrition Start: 08/15/18 14: 11 Text: Status: Complete Freq: Protocol: Document 08/15/18 14:11 LCDASHG (Rec: 08/15/18 14:29 [email or web address] [id number]) Nutritional Asmnt/Malnutrition Patient General Information Nutritional Screening High Risk Diagnosis psychosis, confusion Pertinent Medical Hx/Surgical Hx HTN, metabolic encephalopathy, chronic liver disease, BPH, right ulnar fracture, dementia , anxiety, psychosis Subjective Information Pt seen in [facility]-chair in the [place], very confused, not able to communicate. Per [facility], pt consumed about 50% of breakfast today. Pt needs total assist with meals. blood sugar 204 at admission noted. Current Diet Order/ Nutrition Support pureed Pertinent Medications oscal w/vit D, colace, novolog , seroquel, vit B1, vit D3 Pertinent Labs 08/14 Na 135, Cr 0.6, glucose 204, alb 3.5 Nutritional Hx/Data Height 1.6 m Height (Calculated Centimeters) 160.0 Current Weight (lbs) 54.431 kg Weight (Calculated Kilograms) 54.4 Weight (Calculated Grams) 56816.1 [place] Body Weight 124 Body Mass Index (BMI) 21.2 Weight Status Approriate GI Symptoms GI Symptoms None Last BM 08/14 Difficult in: None Skin Integrity/Comment: intact Current %PO Fair (50-74%) Estimated Nutritional Goals BEE in Kcals: Using Current wt Calories/Kcals/Kg 25-30 Kcals Calculated 6300-4596 Protein: Using Current wt Protein g/k Protein Calculated 55 Fluid: ml 1375-1650ml (1ml/kcal) Nutritional Problem 1. Problem Problem altered nutrition related labs Etiology hyperglycemia Signs/Symptoms: glucose 204 at admission Malnutrition Alert Is there a minimum of two criteria No selected? Query Text:Check all the applicable criteria. A minimum of two criteria are recommended for diagnosis of either severe or non-severe malnutrition. Malnutrition Related to Morbid Obesity Malnutrition related to morbid obesity No Intervention/Recommendation Comments 1. Continue with pureed diet as ordered. Monitor blood sugar. Consider NCS/CCHO diet if glucose continue high. 2. Monitor PO intake, wt, labs and skin integrity 3. F/U as moderate risk in 3-5 days, 08/18-08/20, PO check Expected Outcomes/Goals Expected Outcomes/Goals 1. PO intake to meet at least 75% of nutritional needs. 2. Wt stability, skin to remain intact, labs to approach WNL.
[2018-08-19] MEDS ORDERED: Potassium Chloride 20 mEq ER Tab PO ONE (06:00)
[2018-08-19] MEDS: INSULIN ASPART SLIDING SCALE 100 UNITS/ML UNIT SUBQ SCH ×4 (06:51→20:32)
[2018-08-19 07:39] LABS: ANION GAP 9.6 (7.0-16.0); BUN - UREA NITROGEN 15 mg/dL (7-25); CALCIUM SERUM 9.3 mg/dL (8.6-10.3); CARBON DIOXIDE 24.9 mEq/L (21.0-31.0); CHLORIDE 105 mEq/L (98-107); CREATININE - SERUM 0.5 mg/dL (0.7-1.3); GLUCOSE 106 mg/dL (70-105); POTASSIUM SERUM 3.5 mEq/L (3.5-5.1); SODIUM SERUM 136 mEq/L (136-145)
[2018-08-19] MEDS: Vitamin D3 2,000 IU SGL PO SCH (09:36)
[2018-08-19] MEDS: Multivitamin w/ Minerals Tab PO SCH (09:37)
[2018-08-19] MEDS: Calcium Carb/Vit D 500 mg/200 U Tab PO SCH ×2 (09:37→18:05)
--- NOTE | 2018-08-19 20:25 | Progress Notes ---
DATE: 08/16/2018 DATE OF SERVICE: 08/16/2018 SUBJECTIVE: Chart reviewed and the patient interviewed. Also discussed the patient's condition with the staff and reviewed records and labs. The patient is still in irritable mood and confused. The patient continued to mumble with words, they are difficult to understand and he still have difficulty expressing himself and actually present his needs. Otherwise, the patient needs lots of redirections. He continues picking up on his cast and he continued to try to get off of the journey chair. Otherwise, the patient is compliant with taking his medications with no side effect of medications. ASSESSMENT: The patient seems to be slightly less agitated. TREATMENT PLAN: We will continue to decrease Seroquel and adjusting the dose and decreasing Klonopin and will continue to work on his agitation and confusion. JOB# [id number]
--- NOTE | 2018-08-19 21:55 | Progress Notes ---
DATE: 08/18/2018 SUBJECTIVE: Chart reviewed and the patient interviewed. Discussed patient's condition with the staff and reviewed records and labs. The patient is still confused and restless. The patient also still needs lots of redirections. The patient also have difficulty following direction and is still banging on a Tonya chair. Also is still unable to follow directions. At the same time, the patient continued to comply with taking his medications with no side effects. ASSESSMENT: The patient is still confused and agitated. TREATMENT PLAN: Continue to monitor his behavior. Also, continue Klonopin in a dose of 1 mg 3 times a day and Seroquel 12.5 mg in the morning and 25 mg at bedtime and continue to follow up closely. Also, continue to work on discharge plans and placement issue. JOB# [id number]
--- NOTE | 2018-08-19 21:57 | Progress Notes ---
DATE: 08/19/2018 SUBJECTIVE: Chart reviewed and the patient interviewed. Also, discussed the patient's condition with the staff and reviewed records and labs. The patient is still confused and restless and forgetful, but seems to be slightly less agitated. Also, is less irritable. The patient is also slightly easier to redirect him. He also is compliant with taking his medications with no side effects. ASSESSMENT: The patient is still agitated and confused. TREATMENT PLAN: We will continue to monitor behavior. Also, we will continue adjusting psychotropic medications and working on behavioral modification. JOB# [id number]
--- NOTE | 2018-08-19 23:22 | Progress Notes ---
DATE: 08/17/2018 SUBJECTIVE: Chart reviewed and the patient interviewed. Also, discussed the patient's condition with the staff and reviewed records and labs. The patient is still confused and he is still severely agitated and restless. The patient also is having difficulty following any of staff directions. Also, he is still trying to hit staff. Also unable to carry on any coherent conversation and he is rambling. Otherwise, the patient is taking his medications. ASSESSMENT: The patient is still confused and agitated. TREATMENT PLAN: Continue to decrease Seroquel to 12.5 mg every day and 25 mg at bedtime. Also, increase Klonopin to 1 mg 3 times a day and we will continue to work on his confusion and agitation and continue to follow up. JOB# [id number]
[2018-08-20] MEDS: INSULIN ASPART SLIDING SCALE 100 UNITS/ML UNIT SUBQ SCH ×4 (06:30→20:51)
--- NOTE | 2018-08-20 08:05 | General Progress Note ---
Subjective - Review of Systems Service Date: 08/20/18 Subjective: Awake, alert, but confused. T 99.3 BP 157/69 P 99 R 19 Objective - Results Result Diagrams: 08/14/18 20:30 08/19/18 07:05 Recent Labs: Laboratory Last Values WBC 6.6 Th/cmm (4.8-10.8) 08/14/18 20:30 RBC 3.96 Mil/cmm (3.80-5.80) 08/14/18 20:30 Hgb 11.6 gm/dL (12-16) L 08/14/18 20:30 Hct 35.2 % (41.0-60) L 08/14/18 20:30 MCV 88.9 fl (80-99) 08/14/18 20:30 MCH 29.3 pg (27.0-31.0) 08/14/18 20:30 MCHC Differential 33.0 pg (28.0-36.0) 08/14/18 20:30 RDW 12.0 % (11.5-20.0) 08/14/18 20:30 Plt Count 252 Th/cmm (150-400) 08/14/18 20:30 MPV 8.3 fl 08/14/18 20:30 Neutrophils % 74.6 % (40.0-80.0) 08/14/18 20:30 Lymphocytes % 15.0 % (20.0-50.0) L 08/14/18 20:30 Monocytes % 8.8 % (2.0-10.0) 08/14/18 20:30 Eosinophils % 0.9 % (0.0-5.0) 08/14/18 20:30 Basophils % 0.7 % (0.0-2.0) 08/14/18 20:30 Sodium 136 mEq/L (136-145) 08/19/18 07:05 Potassium 3.5 mEq/L (3.5-5.1) 08/19/18 07:05 Chloride 105 mEq/L (98-107) 08/19/18 07:05 Carbon Dioxide 24.9 mEq/L (21.0-31.0) 08/19/18 07:05 Anion Gap 9.6 (7.0-16.0) 08/19/18 07:05 BUN 15 mg/dL (7-25) 08/19/18 07:05 Creatinine 0.5 mg/dL (0.7-1.3) L 08/19/18 07:05 Est GFR ( Amer) TNP 08/19/18 07:05 Est GFR (Non-Af Amer) TNP 08/19/18 07:05 BUN/Creatinine Ratio 30.0 08/19/18 07:05 Glucose 106 mg/dL (70-105) H 08/19/18 07:05 Calcium 9.3 mg/dL (8.6-10.3) 08/19/18 07:05 Total Bilirubin 1.2 mg/dL (0.3-1.0) H 08/14/18 20:30 AST 38 U/L (13-39) 08/14/18 20:30 ALT 28 U/L (7-52) 08/14/18 20:30 Alkaline Phosphatase 106 U/L (34-104) H 08/14/18 20:30 Ammonia 52 umol/L (16-53) 08/17/18 10:21 Troponin I 0.03 ng/mL (0.01-0.05) 08/14/18 20:30 B-Natriuretic Peptide 44.2 pg/mL (5.0-100.0) 08/14/18 20:30 Total Protein 6.7 gm/dL (6.0-8.3) 08/14/18 20:30 Albumin 3.5 gm/dL (4.2-5.5) L 08/14/18 20:30 Globulin 3.2 gm/dL 08/14/18 20:30 Albumin/Globulin Ratio 1.1 (1.0-1.8) 08/14/18 20:30 Triglycerides 85 mg/dL (<150) 08/15/18 09:47 Cholesterol 125 mg/dL (<200) 08/15/18 09:47 LDL Cholesterol Direct 74 mg/dL (75-193) L 08/15/18 09:47 HDL Cholesterol 35 mg/dL (23-92) 08/15/18 09:47 TSH 1.20 uIU/ml (0.34-5.60) 08/14/18 20:30 - Physical Exam Vitals and I&O: Vital Signs Temp 99.3 F 08/20/18 05:07 Pulse 99 08/20/18 05:07 Resp 19 08/20/18 05:07 BP 157/69 08/20/18 05:07 Pulse Ox 97 08/20/18 05:07 Intake & Output 08/19/18 08/20/18 08/20/18 18:59 06:59 18:59 Intake Total 1600 180 Balance 1600 180 Intake: Oral 1600 180 Other: # Voids 3 2 # Bowel Movements 0 0 Active Medications: Current Medications Acetaminophen (Tylenol) 650 mg PO Q4HR PRN PRN Reason: Pain (Moderate) Stop: 10/13/18 22:37 Last Admin: 08/19/18 03:18 Dose: 650 mg Al Hydrox/Mg Hydrox/Simethicone (Maalox) 30 ml PO Q4HR PRN PRN Reason: GI DISTRESS Stop: 10/13/18 22:29 Amlodipine Besylate (Norvasc) 10 mg PO DAILY [facility] Stop: 10/14/18 08:59 Last Admin: 08/19/18 09:40 Dose: 10 mg Aspirin (Ecotrin) 81 mg PO DAILY [facility] Stop: 10/14/18 08:59 Last Admin: 08/19/18 09:36 Dose: 81 mg Calcium/Vitamin D (Oscal W/Vitamin D) 1 tab PO BID [facility] Stop: 10/14/18 09:44 Last Admin: 08/19/18 18:05 Dose: 1 tab Clonazepam (Klonopin) 1 mg PO TID [facility]; Protocol Stop: 10/16/18 13:59 Last Admin: 08/19/18 20:20 Dose: 1 mg Docusate Sodium (Colace) 100 mg PO BID [facility] Stop: 10/14/18 08:59 Last Admin: 08/19/18 18:05 Dose: 100 mg Donepezil HCl (Aricept) 5 mg PO DAILY [facility] Stop: 10/14/18 08:59 Last Admin: 08/19/18 09:36 Dose: 5 mg Insulin Aspart (Novolog Insulin Sliding Scale) 0 units SUBQ ACHS [facility]; Protocol Stop: 10/14/18 11:29 Last Admin: 08/20/18 06:30 Dose: Not Given Lisinopril (Zestril) 40 mg PO DAILY [facility] Stop: 10/14/18 08:59 Last Admin: 08/19/18 09:39 Dose: 40 mg Lorazepam (Ativan) 1 mg PO BID PRN; Protocol PRN Reason: Anxiety Stop: 10/13/18 22:37 Last Admin: 08/18/18 21:50 Dose: 1 mg Magnesium Hydroxide (Milk Of Magnesia) 30 ml PO HS PRN PRN Reason: Constipation Quetiapine Fumarate (Seroquel) 25 mg PO HS [facility]; Protocol Stop: 10/14/18 20:59 Last Admin: 08/19/18 20:20 Dose: 25 mg Quetiapine Fumarate (Seroquel) 12.5 mg PO DAILY [facility]; Protocol Stop: 10/17/18 08:59 Last Admin: 08/19/18 09:37 Dose: 12.5 mg Tamsulosin HCl (Flomax) 0.4 mg PO HS [facility] Stop: 10/14/18 20:59 Last Admin: 08/19/18 20:20 Dose: 0.4 mg Thiamine HCl (Vitamin B1) 100 mg PO DAILY [facility] Stop: 10/14/18 08:59 Last Admin: 08/19/18 09:38 Dose: 100 mg Tramadol HCl (Ultram) 25 mg PO Q6HR PRN PRN Reason: Pain (Severe) (LEVEL 7-10) Stop: 10/13/18 22:37 Vitamin D (Vitamin D3) 2,000 iu PO DAILY [facility] Stop: 10/14/18 08:59 Last Admin: 08/19/18 09:36 Dose: 2,000 iu Zolpidem Tartrate (Ambien) 5 mg PO HS PRN PRN Reason: Insomnia Stop: 10/13/18 22:29 Last Admin: 08/19/18 20:20 Dose: 5 mg General: Alert HEENT: Atraumatic, PERRLA, EOMI Neck: Supple, no JVD Cardiovascular: Regular rate, Normal S1, Normal S2 Lungs: Clear to auscultation Abdomen: Bowel sounds, Soft Extremities: no Clubbing, no Cyanosis, no Edema Assessment/Plan - Assessment Assessment: psychosis ... HTN hepatic encephalopathy ... on lactulose chronic liver disease BPH right ulnar fracture dementia anxiety hypokalemia ... Kdur 40meq x 1 dose - Plan Plan: admit to [facility] continue current orders Nutritional Asmnt/Malnutr-PDOC - Dietary Evaluation Malnutrition Findings (Please click <Entered> for more info): Nutritional Asmnt/Malnutrition Start: 08/15/18 14: 11 Text: Status: Complete Freq: Protocol: Document 08/15/18 14:11 YOVANY (Rec: 08/15/18 14:29 YOVANY [email or web address]) Nutritional Asmnt/Malnutrition Patient General Information Nutritional Screening High Risk Diagnosis psychosis, confusion Pertinent Medical Hx/Surgical Hx HTN, metabolic encephalopathy, chronic liver disease, BPH, right ulnar fracture, dementia , anxiety, psychosis Subjective Information Pt seen in mirian-chair in the neely, very confused, not able to communicate. Per BULBS FARMWORKER, pt consumed about 50% of breakfast today. Pt needs total assist with meals. blood sugar 204 at admission noted. Current Diet Order/ Nutrition Support pureed Pertinent Medications oscal w/vit D, colace, novolog , seroquel, vit B1, vit D3 Pertinent Labs 08/14 Na 135, Cr 0.6, glucose 204, alb 3.5 Nutritional Hx/Data Height 1.6 m Height (Calculated Centimeters) 160.0 Current Weight (lbs) 54.431 kg Weight (Calculated Kilograms) 54.4 Weight (Calculated Grams) 41954.1 [place] Body Weight 124 Body Mass Index (BMI) 21.2 Weight Status Approriate GI Symptoms GI Symptoms None Last BM 08/14 Difficult in: None Skin Integrity/Comment: intact Current %PO Fair (50-74%) Estimated Nutritional Goals BEE in Kcals: Using Current wt Calories/Kcals/Kg 25-30 Kcals Calculated 9437-4591 Protein: Using Current wt Protein g/k Protein Calculated 55 Fluid: ml 1375-1650ml (1ml/kcal) Nutritional Problem 1. Problem Problem altered nutrition related labs Etiology hyperglycemia Signs/Symptoms: glucose 204 at admission Malnutrition Alert Is there a minimum of two criteria No selected? Query Text:Check all the applicable criteria. A minimum of two criteria are recommended for diagnosis of either severe or non-severe malnutrition. Malnutrition Related to Morbid Obesity Malnutrition related to morbid obesity No Intervention/Recommendation Comments 1. Continue with pureed diet as ordered. Monitor blood sugar. Consider NCS/CCHO diet if glucose continue high. 2. Monitor PO intake, wt, labs and skin integrity 3. F/U as moderate risk in 3-5 days, 08/18-08/20, PO check Expected Outcomes/Goals Expected Outcomes/Goals 1. PO intake to meet at least 75% of nutritional needs. 2. Wt stability, skin to remain intact, labs to approach WNL.
[2018-08-20] MEDS: Calcium Carb/Vit D 500 mg/200 U Tab PO SCH ×2 (08:54→17:05)
[2018-08-20] MEDS: Multivitamin w/ Minerals Tab PO SCH (08:54)
[2018-08-20] MEDS: Vitamin D3 2,000 IU SGL PO SCH (08:54)
--- NOTE | 2018-08-21 04:27 | Progress Notes ---
DATE: 08/20/2018 SUBJECTIVE: The patient coming into the hospital, irritable, confused, mumbling to self in a Tonya chair, waxing and waning mentation, is sometimes able to express himself, other times very confused and disoriented. The patient refusing to speak with me right now, sleeping, arousable, opens his eyes and closes them. Per staff, resistive to care due to his confusion, in a Tonya chair, trying to get up, trying to slide out of the Tonya chair, seems with advanced dementia, anxious, very restless, ongoing behavioral disturbances, highly impulsive and unpredictable, poor sleep at times. MEDICATIONS: Reviewed. ASSESSMENT: The patient remains symptomatic. Ongoing safety concerns, concerns about impulsivity. PLAN: We will continue to monitor. The patient remains symptomatic, not safe for a lower level of care. JOB# [id number]
[2018-08-21] MEDS: INSULIN ASPART SLIDING SCALE 100 UNITS/ML UNIT SUBQ SCH ×4 (06:33→21:14)
--- NOTE | 2018-08-21 08:18 | General Progress Note ---
Subjective - Review of Systems Service Date: 08/21/18 Subjective: Awake, alert, but confused. T 98.4 BP 139/70 P 93 R 20 Objective - Results Result Diagrams: 08/14/18 20:30 08/19/18 07:05 Recent Labs: Laboratory Last Values WBC 6.6 Th/cmm (4.8-10.8) 08/14/18 20:30 RBC 3.96 Mil/cmm (3.80-5.80) 08/14/18 20:30 Hgb 11.6 gm/dL (12-16) L 08/14/18 20:30 Hct 35.2 % (41.0-60) L 08/14/18 20:30 MCV 88.9 fl (80-99) 08/14/18 20:30 MCH 29.3 pg (27.0-31.0) 08/14/18 20:30 MCHC Differential 33.0 pg (28.0-36.0) 08/14/18 20:30 RDW 12.0 % (11.5-20.0) 08/14/18 20:30 Plt Count 252 Th/cmm (150-400) 08/14/18 20:30 MPV 8.3 fl 08/14/18 20:30 Neutrophils % 74.6 % (40.0-80.0) 08/14/18 20:30 Lymphocytes % 15.0 % (20.0-50.0) L 08/14/18 20:30 Monocytes % 8.8 % (2.0-10.0) 08/14/18 20:30 Eosinophils % 0.9 % (0.0-5.0) 08/14/18 20:30 Basophils % 0.7 % (0.0-2.0) 08/14/18 20:30 Sodium 136 mEq/L (136-145) 08/19/18 07:05 Potassium 3.5 mEq/L (3.5-5.1) 08/19/18 07:05 Chloride 105 mEq/L (98-107) 08/19/18 07:05 Carbon Dioxide 24.9 mEq/L (21.0-31.0) 08/19/18 07:05 Anion Gap 9.6 (7.0-16.0) 08/19/18 07:05 BUN 15 mg/dL (7-25) 08/19/18 07:05 Creatinine 0.5 mg/dL (0.7-1.3) L 08/19/18 07:05 Est GFR ( Amer) TNP 08/19/18 07:05 Est GFR (Non-Af Amer) TNP 08/19/18 07:05 BUN/Creatinine Ratio 30.0 08/19/18 07:05 Glucose 106 mg/dL (70-105) H 08/19/18 07:05 Calcium 9.3 mg/dL (8.6-10.3) 08/19/18 07:05 Total Bilirubin 1.2 mg/dL (0.3-1.0) H 08/14/18 20:30 AST 38 U/L (13-39) 08/14/18 20:30 ALT 28 U/L (7-52) 08/14/18 20:30 Alkaline Phosphatase 106 U/L (34-104) H 08/14/18 20:30 Ammonia 52 umol/L (16-53) 08/17/18 10:21 Troponin I 0.03 ng/mL (0.01-0.05) 08/14/18 20:30 B-Natriuretic Peptide 44.2 pg/mL (5.0-100.0) 08/14/18 20:30 Total Protein 6.7 gm/dL (6.0-8.3) 08/14/18 20:30 Albumin 3.5 gm/dL (4.2-5.5) L 08/14/18 20:30 Globulin 3.2 gm/dL 08/14/18 20:30 Albumin/Globulin Ratio 1.1 (1.0-1.8) 08/14/18 20:30 Triglycerides 85 mg/dL (<150) 08/15/18 09:47 Cholesterol 125 mg/dL (<200) 08/15/18 09:47 LDL Cholesterol Direct 74 mg/dL (75-193) L 08/15/18 09:47 HDL Cholesterol 35 mg/dL (23-92) 08/15/18 09:47 TSH 1.20 uIU/ml (0.34-5.60) 08/14/18 20:30 - Physical Exam Vitals and I&O: Vital Signs Temp 98.4 F 08/21/18 05:34 Pulse 90 08/21/18 05:34 Resp 20 08/21/18 05:34 BP 139/70 08/21/18 05:34 Pulse Ox 93 08/21/18 05:34 Intake & Output 08/20/18 08/21/18 08/21/18 18:59 06:59 18:59 Intake Total 1500 Balance 1500 Intake: Oral 1500 Other: # Voids 4 # Bowel Movements 0 Active Medications: Current Medications Acetaminophen (Tylenol) 650 mg PO Q4HR PRN PRN Reason: Pain (Moderate) Stop: 10/13/18 22:37 Last Admin: 08/19/18 03:18 Dose: 650 mg Al Hydrox/Mg Hydrox/Simethicone (Maalox) 30 ml PO Q4HR PRN PRN Reason: GI DISTRESS Stop: 10/13/18 22:29 Amlodipine Besylate (Norvasc) 10 mg PO DAILY [facility] Stop: 10/14/18 08:59 Last Admin: 08/20/18 08:56 Dose: 10 mg Aspirin (Ecotrin) 81 mg PO DAILY [facility] Stop: 10/14/18 08:59 Last Admin: 08/20/18 08:53 Dose: 81 mg Calcium/Vitamin D (Oscal W/Vitamin D) 1 tab PO BID [facility] Stop: 10/14/18 09:44 Last Admin: 08/20/18 17:05 Dose: 1 tab Clonazepam (Klonopin) 1 mg PO TID [facility]; Protocol Stop: 10/16/18 13:59 Last Admin: 08/20/18 20:49 Dose: 1 mg Docusate Sodium (Colace) 100 mg PO BID [facility] Stop: 10/14/18 08:59 Last Admin: 08/20/18 17:04 Dose: 100 mg Donepezil HCl (Aricept) 5 mg PO DAILY [facility] Stop: 10/14/18 08:59 Last Admin: 08/20/18 08:53 Dose: 5 mg Insulin Aspart (Novolog Insulin Sliding Scale) 0 units SUBQ ACHS [facility]; Protocol Stop: 10/14/18 11:29 Last Admin: 08/21/18 06:33 Dose: Not Given Lisinopril (Zestril) 40 mg PO DAILY [facility] Stop: 10/14/18 08:59 Last Admin: 08/20/18 08:57 Dose: 40 mg Lorazepam (Ativan) 1 mg PO BID [facility]N; Protocol PRN Reason: Anxiety Stop: 10/13/18 22:37 Last Admin: 08/18/18 21:50 Dose: 1 mg Magnesium Hydroxide (Milk Of Magnesia) 30 ml PO HS PRN PRN Reason: Constipation Quetiapine Fumarate (Seroquel) 25 mg PO HS [facility]; Protocol Stop: 10/14/18 20:59 Last Admin: 08/20/18 20:50 Dose: 25 mg Quetiapine Fumarate (Seroquel) 12.5 mg PO DAILY [facility]; Protocol Stop: 10/17/18 08:59 Last Admin: 08/20/18 08:54 Dose: 12.5 mg Tamsulosin HCl (Flomax) 0.4 mg PO HS [facility] Stop: 10/14/18 20:59 Last Admin: 08/20/18 20:51 Dose: 0.4 mg Thiamine HCl (Vitamin B1) 100 mg PO DAILY [facility] Stop: 10/14/18 08:59 Last Admin: 08/20/18 08:55 Dose: 100 mg Tramadol HCl (Ultram) 25 mg PO Q6HR PRN PRN Reason: Pain (Severe) (LEVEL 7-10) Stop: 10/13/18 22:37 Vitamin D (Vitamin D3) 2,000 iu PO DAILY [facility] Stop: 10/14/18 08:59 Last Admin: 08/20/18 08:54 Dose: 2,000 iu Zolpidem Tartrate (Ambien) 5 mg PO HS PRN PRN Reason: Insomnia Stop: 10/13/18 22:29 Last Admin: 08/20/18 20:50 Dose: 5 mg General: Alert HEENT: Atraumatic, PERRLA, EOMI Neck: Supple, no JVD Cardiovascular: Regular rate, Normal S1, Normal S2 Lungs: Clear to auscultation Abdomen: Bowel sounds, Soft Extremities: no Clubbing, no Cyanosis, no Edema Assessment/Plan - Assessment Assessment: psychosis ... continue current treatment HTN .. controlled hepatic encephalopathy ... on lactulose PO chronic liver disease BPH right ulnar fracture dementia anxiety hypokalemia ... Kdur 40meq x 1 dose - Plan Plan: admit to [facility] continue current orders Nutritional Asmnt/Malnutr-PDOC - Dietary Evaluation Malnutrition Findings (Please click <Entered> for more info): Nutritional Asmnt/Malnutrition Start: 08/15/18 14: 11 Text: Status: Complete Freq: Protocol: Document 08/15/18 14:11 [email or web address] (Rec: 08/15/18 14:29 YOVANY [email or web address]) Nutritional Asmnt/Malnutrition Patient General Information Nutritional Screening High Risk Diagnosis psychosis, confusion Pertinent Medical Hx/Surgical Hx HTN, metabolic encephalopathy, chronic liver disease, BPH, right ulnar fracture, dementia , anxiety, psychosis Subjective Information Pt seen in mirian-chair in the ne[place], very confused, not able to communicate. Per RESOURCE RECOVERY SPECIALIST, pt consumed about 50% of breakfast today. Pt needs total assist with meals. blood sugar 204 at admission noted. Current Diet Order/ Nutrition Support pureed Pertinent Medications oscal w/vit D, colace, novolog , seroquel, vit B1, vit D3 Pertinent Labs 08/14 Na 135, Cr 0.6, glucose 204, alb 3.5 Nutritional Hx/Data Height 1.6 m Height (Calculated Centimeters) 160.0 Current Weight (lbs) 54.431 kg Weight (Calculated Kilograms) 54.4 Weight (Calculated Grams) 65306.1 [place] Body Weight 124 Body Mass Index (BMI) 21.2 Weight Status Approriate GI Symptoms GI Symptoms None Last BM 08/14 Difficult in: None Skin Integrity/Comment: intact Current %PO Fair (50-74%) Estimated Nutritional Goals BEE in Kcals: Using Current wt Calories/Kcals/Kg 25-30 Kcals Calculated 5582-4179 Protein: Using Current wt Protein g/k Protein Calculated 55 Fluid: ml 1375-1650ml (1ml/kcal) Nutritional Problem 1. Problem Problem altered nutrition related labs Etiology hyperglycemia Signs/Symptoms: glucose 204 at admission Malnutrition Alert Is there a minimum of two criteria No selected? Query Text:Check all the applicable criteria. A minimum of two criteria are recommended for diagnosis of either severe or non-severe malnutrition. Malnutrition Related to Morbid Obesity Malnutrition related to morbid obesity No Intervention/Recommendation Comments 1. Continue with pureed diet as ordered. Monitor blood sugar. Consider NCS/CCHO diet if glucose continue high. 2. Monitor PO intake, wt, labs and skin integrity 3. F/U as moderate risk in 3-5 days, 08/18-08/20, PO check Expected Outcomes/Goals Expected Outcomes/Goals 1. PO intake to meet at least 75% of nutritional needs. 2. Wt stability, skin to remain intact, labs to approach WNL.
--- NOTE | 2018-08-21 08:45 | Psychiatric Evaluation ---
DATE OF SERVICE: INITIAL EVALUATION AND MENTAL STATUS PATIENT'S AGE: 73-year-old. SEX: Male. PHYSICIAN: Dr. Chaidez. CHIEF COMPLAINT: Agitation and confusion. HISTORY OF PRESENT ILLNESS: The patient is a 73-year-old male with history of dementia. The patient was evaluated in my office one day prior to his admission because of confusion and agitation. The patient continued to be agitated and restless and unable to follow directions. Also has been confused. The patient also was aggressive with the staff in the long-term. Although I did change the medications the day prior to his admission yet staff was still not able to handle his agitation and aggression and the patient was brought into the hospital. PAST PSYCHIATRIC HISTORY: The patient has a diagnosis of dementia and psychosis. PAST MEDICAL HISTORY: As per medical doctor. SOCIAL HISTORY: The patient lives in a long-term facility. No known alcohol or drug use. ALLERGIES: No known allergies. MENTAL STATUS EXAMINATION: The patient appears his stated age. Irritable mood. Confused. Anxious. Restless. Continues trying to hop picker things. The patient also has broken right arm and is on a cast. The patient did not answer questions regarding hallucinations or delusions, but actively responding to stimuli. The patient did not answer question regarding suicide or homicide. The patient is alert, but disoriented to time, place, person and situation. Impaired immediate, recent and remote memories. Poor insight and poor judgment. ASSESSMENT: PRIMARY DIAGNOSIS: Unspecified psychosis. SECONDARY DIAGNOSIS: Dementia, severe, with psychotic features and behavioral problems. TREATMENT PLAN: We will admit the patient to Ger[facility] Unit. We will start individual as well as milieu psychotherapy. We will also adjust psychotropic medications and work on behavior modification. ESTIMATED LENGTH OF STAY: 5-7 days. THE PATIENT'S STRENGTHS AND WEAKNESSES: The patient's strength is not clear at this time. Weaknesses is his poor impulse control. AFTER DISCHARGE PLAN: Outpatient treatment and followup will continue as an outpatient and the patient will return to long-term facility. JOB# [id number]
[2018-08-21] MEDS: Multivitamin w/ Minerals Tab PO SCH (09:05)
[2018-08-21] MEDS: Vitamin D3 2,000 IU SGL PO SCH (09:05)
[2018-08-21] MEDS: Calcium Carb/Vit D 500 mg/200 U Tab PO SCH ×2 (09:05→16:55)
--- NOTE | 2018-08-21 20:27 | Progress Notes ---
DATE: 08/21/2018 A 73-year-old male with history of dementia. The patient is confused, agitated, aggressive with the staff at nursing home facility. On [id number], the patient not responding to any question, seemingly confused, disoriented, difficult to fully assess, in his room, he is awake, sleeping, arousable, but does not want to talk to me, mostly in a Tonya chair, trying to slide down the Tonya chair, history of falls, restless, agitation at times, hyperverbal, very confused, disoriented. MEDICATIONS: Reviewed. ASSESSMENT: Ongoing symptoms of restlessness, agitation, confusion. PLAN: Continue to monitor, the patient remains unstable at this time, highly impulsive and unpredictable. JOB# [id number]
[2018-08-22] MEDS: INSULIN ASPART SLIDING SCALE 100 UNITS/ML UNIT SUBQ SCH ×4 (06:29→20:53)
--- NOTE | 2018-08-22 08:11 | General Progress Note ---
Subjective - Review of Systems Service Date: 08/22/18 Subjective: Awake, alert, but confused. T 98.4 BP 104/72 P 82 R 19 Objective - Results Result Diagrams: 08/14/18 20:30 08/19/18 07:05 Recent Labs: Laboratory Last Values WBC 6.6 Th/cmm (4.8-10.8) 08/14/18 20:30 RBC 3.96 Mil/cmm (3.80-5.80) 08/14/18 20:30 Hgb 11.6 gm/dL (12-16) L 08/14/18 20:30 Hct 35.2 % (41.0-60) L 08/14/18 20:30 MCV 88.9 fl (80-99) 08/14/18 20:30 MCH 29.3 pg (27.0-31.0) 08/14/18 20:30 MCHC Differential 33.0 pg (28.0-36.0) 08/14/18 20:30 RDW 12.0 % (11.5-20.0) 08/14/18 20:30 Plt Count 252 Th/cmm (150-400) 08/14/18 20:30 MPV 8.3 fl 08/14/18 20:30 Neutrophils % 74.6 % (40.0-80.0) 08/14/18 20:30 Lymphocytes % 15.0 % (20.0-50.0) L 08/14/18 20:30 Monocytes % 8.8 % (2.0-10.0) 08/14/18 20:30 Eosinophils % 0.9 % (0.0-5.0) 08/14/18 20:30 Basophils % 0.7 % (0.0-2.0) 08/14/18 20:30 Sodium 136 mEq/L (136-145) 08/19/18 07:05 Potassium 3.5 mEq/L (3.5-5.1) 08/19/18 07:05 Chloride 105 mEq/L (98-107) 08/19/18 07:05 Carbon Dioxide 24.9 mEq/L (21.0-31.0) 08/19/18 07:05 Anion Gap 9.6 (7.0-16.0) 08/19/18 07:05 BUN 15 mg/dL (7-25) 08/19/18 07:05 Creatinine 0.5 mg/dL (0.7-1.3) L 08/19/18 07:05 Est GFR ( Amer) TNP 08/19/18 07:05 Est GFR (Non-Af Amer) TNP 08/19/18 07:05 BUN/Creatinine Ratio 30.0 08/19/18 07:05 Glucose 106 mg/dL (70-105) H 08/19/18 07:05 Calcium 9.3 mg/dL (8.6-10.3) 08/19/18 07:05 Total Bilirubin 1.2 mg/dL (0.3-1.0) H 08/14/18 20:30 AST 38 U/L (13-39) 08/14/18 20:30 ALT 28 U/L (7-52) 08/14/18 20:30 Alkaline Phosphatase 106 U/L (34-104) H 08/14/18 20:30 Ammonia 52 umol/L (16-53) 08/17/18 10:21 Troponin I 0.03 ng/mL (0.01-0.05) 08/14/18 20:30 B-Natriuretic Peptide 44.2 pg/mL (5.0-100.0) 08/14/18 20:30 Total Protein 6.7 gm/dL (6.0-8.3) 08/14/18 20:30 Albumin 3.5 gm/dL (4.2-5.5) L 08/14/18 20:30 Globulin 3.2 gm/dL 08/14/18 20:30 Albumin/Globulin Ratio 1.1 (1.0-1.8) 08/14/18 20:30 Triglycerides 85 mg/dL (<150) 08/15/18 09:47 Cholesterol 125 mg/dL (<200) 08/15/18 09:47 LDL Cholesterol Direct 74 mg/dL (75-193) L 08/15/18 09:47 HDL Cholesterol 35 mg/dL (23-92) 08/15/18 09:47 TSH 1.20 uIU/ml (0.34-5.60) 08/14/18 20:30 - Physical Exam Vitals and I&O: Vital Signs Temp 98.4 F 08/22/18 05:04 Pulse 102 08/22/18 05:04 Resp 19 08/22/18 05:04 BP 104/72 08/22/18 05:04 Pulse Ox 97 08/22/18 05:04 Intake & Output 08/21/18 08/22/18 08/22/18 18:59 06:59 18:59 Intake Total 1550 480 Balance 1550 480 Intake: Oral 1550 480 Other: # Voids 3 1 # Bowel Movements 0 Active Medications: Current Medications Acetaminophen (Tylenol) 650 mg PO Q4HR PRN PRN Reason: Pain (Moderate) Stop: 10/13/18 22:37 Last Admin: 08/19/18 03:18 Dose: 650 mg Al Hydrox/Mg Hydrox/Simethicone (Maalox) 30 ml PO Q4HR PRN PRN Reason: GI DISTRESS Stop: 10/13/18 22:29 Amlodipine Besylate (Norvasc) 10 mg PO DAILY [facility] Stop: 10/14/18 08:59 Last Admin: 08/21/18 09:08 Dose: 10 mg Aspirin (Ecotrin) 81 mg PO DAILY [facility] Stop: 10/14/18 08:59 Last Admin: 08/21/18 09:05 Dose: 81 mg Calcium/Vitamin D (Oscal W/Vitamin D) 1 tab PO BID [facility] Stop: 10/14/18 09:44 Last Admin: 08/21/18 16:55 Dose: 1 tab Clonazepam (Klonopin) 1 mg PO TID [facility]; Protocol Stop: 10/16/18 13:59 Last Admin: 08/21/18 21:14 Dose: 1 mg Docusate Sodium (Colace) 100 mg PO BID [facility] Stop: 10/14/18 08:59 Last Admin: 08/21/18 16:55 Dose: 100 mg Donepezil HCl (Aricept) 5 mg PO DAILY [facility] Stop: 10/14/18 08:59 Last Admin: 08/21/18 09:05 Dose: 5 mg Insulin Aspart (Novolog Insulin Sliding Scale) 0 units SUBQ ACHS [facility]; Protocol Stop: 10/14/18 11:29 Last Admin: 08/22/18 06:29 Dose: Not Given Lisinopril (Zestril) 40 mg PO DAILY [facility] Stop: 10/14/18 08:59 Last Admin: 08/21/18 09:05 Dose: 40 mg Lorazepam (Ativan) 1 mg PO BID PRN; Protocol PRN Reason: Anxiety Stop: 10/13/18 22:37 Last Admin: 08/18/18 21:50 Dose: 1 mg Magnesium Hydroxide (Milk Of Magnesia) 30 ml PO HS PRN PRN Reason: Constipation Quetiapine Fumarate (Seroquel) 25 mg PO HS [facility]; Protocol Stop: 10/14/18 20:59 Last Admin: 08/21/18 21:14 Dose: 25 mg Quetiapine Fumarate (Seroquel) 12.5 mg PO DAILY [facility]; Protocol Stop: 10/17/18 08:59 Last Admin: 08/21/18 09:04 Dose: 12.5 mg Tamsulosin HCl (Flomax) 0.4 mg PO HS [facility] Stop: 10/14/18 20:59 Last Admin: 08/21/18 21:14 Dose: 0.4 mg Thiamine HCl (Vitamin B1) 100 mg PO DAILY [facility] Stop: 10/14/18 08:59 Last Admin: 08/21/18 09:04 Dose: 100 mg Tramadol HCl (Ultram) 25 mg PO Q6HR PRN PRN Reason: Pain (Severe) (LEVEL 7-10) Stop: 10/13/18 22:37 Vitamin D (Vitamin D3) 2,000 iu PO DAILY [facility] Stop: 10/14/18 08:59 Last Admin: 08/21/18 09:05 Dose: 2,000 iu Zolpidem Tartrate (Ambien) 5 mg PO HS PRN PRN Reason: Insomnia Stop: 10/13/18 22:29 Last Admin: 08/21/18 21:14 Dose: 5 mg General: Alert HEENT: Atraumatic, PERRLA, EOMI Neck: Supple, no JVD Cardiovascular: Regular rate, Normal S1, Normal S2 Lungs: Clear to auscultation Abdomen: Bowel sounds, Soft Extremities: no Clubbing, no Cyanosis, no Edema Assessment/Plan - Assessment Assessment: psychosis ... continue current treatment HTN .. controlled hepatic encephalopathy ... on lactulose PO chronic liver disease BPH right ulnar fracture dementia anxiety hypokalemia ... Kdur 40meq x 1 dose - Plan Plan: admit to geropsyche continue current orders Nutritional Asmnt/Malnutr-PDOC - Dietary Evaluation Malnutrition Findings (Please click <Entered> for more info): Nutritional Asmnt/Malnutrition Start: 08/15/18 14: 11 Text: Status: Complete Freq: Protocol: Document 08/15/18 14:11 YOVANY (Rec: 08/15/18 14:29 YOVANY [email or web address]) Nutritional Asmnt/Malnutrition Patient General Information Nutritional Screening High Risk Diagnosis psychosis, confusion Pertinent Medical Hx/Surgical Hx HTN, metabolic encephalopathy, chronic liver disease, BPH, right ulnar fracture, dementia , anxiety, psychosis Subjective Information Pt seen in mirian-chair in the [place], very confused, not able to communicate. Per MOLD FILLER AND DRAINER, pt consumed about 50% of breakfast today. Pt needs total assist with meals. blood sugar 204 at admission noted. Current Diet Order/ Nutrition Support pureed Pertinent Medications oscal w/vit D, colace, novolog , seroquel, vit B1, vit D3 Pertinent Labs 08/14 Na 135, Cr 0.6, glucose 204, alb 3.5 Nutritional Hx/Data Height 1.6 m Height (Calculated Centimeters) 160.0 Current Weight (lbs) 54.431 kg Weight (Calculated Kilograms) 54.4 Weight (Calculated Grams) 20052.1 [place] Body Weight 124 Body Mass Index (BMI) 21.2 Weight Status Approriate GI Symptoms GI Symptoms None Last BM 08/14 Difficult in: None Skin Integrity/Comment: intact Current %PO Fair (50-74%) Estimated Nutritional Goals BEE in Kcals: Using Current wt Calories/Kcals/Kg 25-30 Kcals Calculated 8002-3873 Protein: Using Current wt Protein g/k Protein Calculated 55 Fluid: ml 1375-1650ml (1ml/kcal) Nutritional Problem 1. Problem Problem altered nutrition related labs Etiology hyperglycemia Signs/Symptoms: glucose 204 at admission Malnutrition Alert Is there a minimum of two criteria No selected? Query Text:Check all the applicable criteria. A minimum of two criteria are recommended for diagnosis of either severe or non-severe malnutrition. Malnutrition Related to Morbid Obesity Malnutrition related to morbid obesity No Intervention/Recommendation Comments 1. Continue with pureed diet as ordered. Monitor blood sugar. Consider NCS/CCHO diet if glucose continue high. 2. Monitor PO intake, wt, labs and skin integrity 3. F/U as moderate risk in 3-5 days, 08/18-08/20, PO check Expected Outcomes/Goals Expected Outcomes/Goals 1. PO intake to meet at least 75% of nutritional needs. 2. Wt stability, skin to remain intact, labs to approach WNL.
[2018-08-22] MEDS: Vitamin D3 2,000 IU SGL PO SCH (08:45)
[2018-08-22] MEDS: Multivitamin w/ Minerals Tab PO SCH (08:45)
[2018-08-22] MEDS: Calcium Carb/Vit D 500 mg/200 U Tab PO SCH ×2 (08:47→17:49)
--- NOTE | 2018-08-22 22:06 | Progress Notes ---
DATE: 08/22/2018 SUBJECTIVE: Chart reviewed and the patient interviewed. Also, discussed the patient's condition with the staff and reviewed records and labs. The patient is still anxious and confused and is still having episodes of agitation, but easier to redirect him. The patient also is still awake, compliant with taking medications with no side effects of medications. The patient also still needs placement. ASSESSMENT: The patient is still confused and psychotic. TREATMENT PLAN: Continue current medications and also work on behavioral modifications. Also, working on discharge plans and placement issue. JOB# [id number]
[2018-08-23] MEDS: INSULIN ASPART SLIDING SCALE 100 UNITS/ML UNIT SUBQ SCH ×4 (06:33→21:45)
--- NOTE | 2018-08-23 08:20 | Progress Notes ---
DATE: SUBJECTIVE: Chart reviewed and the patient interviewed. Also discussed the patient's condition with the staff and reviewed records and labs. The patient continued to be confused and restless, but seems to be less than before. The patient also still needs redirections. He is slightly easier to redirect him, but he still needs close monitoring. Otherwise, the patient is compliant with taking his medications with no side effects of medications. ASSESSMENT: The patient is still agitated and needs placement. TREATMENT PLAN: Continue to monitor his behavior and his condition closely. Also, we will increase Aricept to 10 mg every day and monitor if this will help slightly with his behavior. Also, we will continue working on his placement issue and I texted to the bilingual case manager on possible placement in [place]. At the same time, we will continue to work on his confusion and his agitation and we will continue to follow up. Also, we will increase Seroquel to 12.5 mg twice a day. JOB# [id number]
--- NOTE | 2018-08-23 08:37 | General Progress Note ---
Subjective - Review of Systems Service Date: 08/23/18 Subjective: Awake, alert, but confused. T 98.4 BP 122/70 P 87 R 19 Objective - Results Result Diagrams: 08/14/18 20:30 08/19/18 07:05 Recent Labs: Laboratory Last Values WBC 6.6 Th/cmm (4.8-10.8) 08/14/18 20:30 RBC 3.96 Mil/cmm (3.80-5.80) 08/14/18 20:30 Hgb 11.6 gm/dL (12-16) L 08/14/18 20:30 Hct 35.2 % (41.0-60) L 08/14/18 20:30 MCV 88.9 fl (80-99) 08/14/18 20:30 MCH 29.3 pg (27.0-31.0) 08/14/18 20:30 MCHC Differential 33.0 pg (28.0-36.0) 08/14/18 20:30 RDW 12.0 % (11.5-20.0) 08/14/18 20:30 Plt Count 252 Th/cmm (150-400) 08/14/18 20:30 MPV 8.3 fl 08/14/18 20:30 Neutrophils % 74.6 % (40.0-80.0) 08/14/18 20:30 Lymphocytes % 15.0 % (20.0-50.0) L 08/14/18 20:30 Monocytes % 8.8 % (2.0-10.0) 08/14/18 20:30 Eosinophils % 0.9 % (0.0-5.0) 08/14/18 20:30 Basophils % 0.7 % (0.0-2.0) 08/14/18 20:30 Sodium 136 mEq/L (136-145) 08/19/18 07:05 Potassium 3.5 mEq/L (3.5-5.1) 08/19/18 07:05 Chloride 105 mEq/L (98-107) 08/19/18 07:05 Carbon Dioxide 24.9 mEq/L (21.0-31.0) 08/19/18 07:05 Anion Gap 9.6 (7.0-16.0) 08/19/18 07:05 BUN 15 mg/dL (7-25) 08/19/18 07:05 Creatinine 0.5 mg/dL (0.7-1.3) L 08/19/18 07:05 Est GFR ( Amer) TNP 08/19/18 07:05 Est GFR (Non-Af Amer) TNP 08/19/18 07:05 BUN/Creatinine Ratio 30.0 08/19/18 07:05 Glucose 106 mg/dL (70-105) H 08/19/18 07:05 Calcium 9.3 mg/dL (8.6-10.3) 08/19/18 07:05 Total Bilirubin 1.2 mg/dL (0.3-1.0) H 08/14/18 20:30 AST 38 U/L (13-39) 08/14/18 20:30 ALT 28 U/L (7-52) 08/14/18 20:30 Alkaline Phosphatase 106 U/L (34-104) H 08/14/18 20:30 Ammonia 52 umol/L (16-53) 08/17/18 10:21 Troponin I 0.03 ng/mL (0.01-0.05) 08/14/18 20:30 B-Natriuretic Peptide 44.2 pg/mL (5.0-100.0) 08/14/18 20:30 Total Protein 6.7 gm/dL (6.0-8.3) 08/14/18 20:30 Albumin 3.5 gm/dL (4.2-5.5) L 08/14/18 20:30 Globulin 3.2 gm/dL 08/14/18 20:30 Albumin/Globulin Ratio 1.1 (1.0-1.8) 08/14/18 20:30 Triglycerides 85 mg/dL (<150) 08/15/18 09:47 Cholesterol 125 mg/dL (<200) 08/15/18 09:47 LDL Cholesterol Direct 74 mg/dL (75-193) L 08/15/18 09:47 HDL Cholesterol 35 mg/dL (23-92) 08/15/18 09:47 TSH 1.20 uIU/ml (0.34-5.60) 08/14/18 20:30 - Physical Exam Vitals and I&O: Vital Signs Temp 98.4 F 08/23/18 06:51 Pulse 98 08/23/18 06:51 Resp 19 08/23/18 06:51 BP 122/70 08/23/18 06:51 Pulse Ox 96 08/23/18 06:51 Intake & Output 08/22/18 08/23/18 08/23/18 18:59 06:59 18:59 Other: # Voids 3 # Bowel Movements 1 Active Medications: Current Medications Acetaminophen (Tylenol) 650 mg PO Q4HR PRN PRN Reason: Pain (Moderate) Stop: 10/13/18 22:37 Last Admin: 08/19/18 03:18 Dose: 650 mg Al Hydrox/Mg Hydrox/Simethicone (Maalox) 30 ml PO Q4HR PRN PRN Reason: GI DISTRESS Stop: 10/13/18 22:29 Amlodipine Besylate (Norvasc) 10 mg PO DAILY [facility] Stop: 10/14/18 08:59 Last Admin: 08/22/18 08:47 Dose: Not Given Aspirin (Ecotrin) 81 mg PO DAILY [facility] Stop: 10/14/18 08:59 Last Admin: 08/22/18 08:46 Dose: 81 mg Calcium/Vitamin D (Oscal W/Vitamin D) 1 tab PO BID [facility] Stop: 10/14/18 09:44 Last Admin: 08/22/18 17:49 Dose: Not Given Clonazepam (Klonopin) 1 mg PO TID [facility]; Protocol Stop: 10/16/18 13:59 Last Admin: 08/22/18 20:52 Dose: 1 mg Docusate Sodium (Colace) 100 mg PO BID [facility] Stop: 10/14/18 08:59 Last Admin: 08/22/18 17:49 Dose: Not Given Donepezil HCl (Aricept) 10 mg PO DAILY [facility] Stop: 10/22/18 08:59 Insulin Aspart (Novolog Insulin Sliding Scale) 0 units SUBQ ACHS [facility]; Protocol Stop: 10/14/18 11:29 Last Admin: 08/23/18 06:33 Dose: Not Given Lisinopril (Zestril) 40 mg PO DAILY [facility] Stop: 10/14/18 08:59 Last Admin: 08/22/18 08:47 Dose: Not Given Lorazepam (Ativan) 1 mg PO BID PRN; Protocol PRN Reason: Anxiety Stop: 10/13/18 22:37 Last Admin: 08/18/18 21:50 Dose: 1 mg Magnesium Hydroxide (Milk Of Magnesia) 30 ml PO HS PRN PRN Reason: Constipation Quetiapine Fumarate (Seroquel) 25 mg PO HS [facility]; Protocol Stop: 10/14/18 20:59 Last Admin: 08/22/18 20:53 Dose: 25 mg Quetiapine Fumarate (Seroquel) 12.5 mg PO BID [facility]; Protocol Stop: 10/22/18 08:59 Tamsulosin HCl (Flomax) 0.4 mg PO HS [facility] Stop: 10/14/18 20:59 Last Admin: 08/22/18 20:52 Dose: 0.4 mg Thiamine HCl (Vitamin B1) 100 mg PO DAILY [facility] Stop: 10/14/18 08:59 Last Admin: 08/22/18 08:45 Dose: 100 mg Tramadol HCl (Ultram) 25 mg PO Q6HR PRN PRN Reason: Pain (Severe) (LEVEL 7-10) Stop: 10/13/18 22:37 Vitamin D (Vitamin D3) 2,000 iu PO DAILY [facility] Stop: 10/14/18 08:59 Last Admin: 08/22/18 08:45 Dose: 2,000 iu Zolpidem Tartrate (Ambien) 5 mg PO HS PRN PRN Reason: Insomnia Stop: 10/13/18 22:29 Last Admin: 08/21/18 21:14 Dose: 5 mg General: Alert HEENT: Atraumatic, PERRLA, EOMI Neck: Supple, no JVD Cardiovascular: Regular rate, Normal S1, Normal S2 Lungs: Clear to auscultation Abdomen: Bowel sounds, Soft Extremities: no Clubbing, no Cyanosis, no Edema Assessment/Plan - Assessment Assessment: psychosis ... continue current treatment HTN .. controlled hepatic encephalopathy ... on lactulose PO chronic liver disease BPH right ulnar fracture dementia anxiety hypokalemia ... Kdur 40meq x 1 dose - Plan Plan: admit to geropsyche continue current orders Nutritional Asmnt/Malnutr-PDOC - Dietary Evaluation Malnutrition Findings (Please click <Entered> for more info): Nutritional Asmnt/Malnutrition Start: 08/15/18 14: 11 Text: Status: Complete Freq: Protocol: Document 08/15/18 14:11 KASIEG (Rec: 08/15/18 14:29 LCHENG [email or web address]) Nutritional Asmnt/Malnutrition Patient General Information Nutritional Screening High Risk Diagnosis psychosis, confusion Pertinent Medical Hx/Surgical Hx HTN, metabolic encephalopathy, chronic liver disease, BPH, right ulnar fracture, dementia , anxiety, psychosis Subjective Information Pt seen in mirian-chair in the [place], very confused, not able to communicate. Per REHABILITATION SERVICES MANAGER, pt consumed about 50% of breakfast today. Pt needs total assist with meals. blood sugar 204 at admission noted. Current Diet Order/ Nutrition Support pureed Pertinent Medications oscal w/vit D, colace, novolog , seroquel, vit B1, vit D3 Pertinent Labs 08/14 Na 135, Cr 0.6, glucose 204, alb 3.5 Nutritional Hx/Data Height 1.6 m Height (Calculated Centimeters) 160.0 Current Weight (lbs) 54.431 kg Weight (Calculated Kilograms) 54.4 Weight (Calculated Grams) 82776.1 [place] Body Weight 124 Body Mass Index (BMI) 21.2 Weight Status Approriate GI Symptoms GI Symptoms None Last BM 08/14 Difficult in: None Skin Integrity/Comment: intact Current %PO Fair (50-74%) Estimated Nutritional Goals BEE in Kcals: Using Current wt Calories/Kcals/Kg 25-30 Kcals Calculated 2505-9108 Protein: Using Current wt Protein g/k Protein Calculated 55 Fluid: ml 1375-1650ml (1ml/kcal) Nutritional Problem 1. Problem Problem altered nutrition related labs Etiology hyperglycemia Signs/Symptoms: glucose 204 at admission Malnutrition Alert Is there a minimum of two criteria No selected? Query Text:Check all the applicable criteria. A minimum of two criteria are recommended for diagnosis of either severe or non-severe malnutrition. Malnutrition Related to Morbid Obesity Malnutrition related to morbid obesity No Intervention/Recommendation Comments 1. Continue with pureed diet as ordered. Monitor blood sugar. Consider NCS/CCHO diet if glucose continue high. 2. Monitor PO intake, wt, labs and skin integrity 3. F/U as moderate risk in 3-5 days, 08/18-08/20, PO check Expected Outcomes/Goals Expected Outcomes/Goals 1. PO intake to meet at least 75% of nutritional needs. 2. Wt stability, skin to remain intact, labs to approach WNL.
[2018-08-23] MEDS: Vitamin D3 2,000 IU SGL PO SCH (09:13)
[2018-08-23] MEDS: Calcium Carb/Vit D 500 mg/200 U Tab PO SCH ×2 (09:13→17:10)
[2018-08-23] MEDS: Multivitamin w/ Minerals Tab PO SCH (09:14)
[2018-08-24] MEDS: INSULIN ASPART SLIDING SCALE 100 UNITS/ML UNIT SUBQ SCH ×4 (06:30→20:55)
[2018-08-24] MEDS: Calcium Carb/Vit D 500 mg/200 U Tab PO SCH ×2 (09:30→17:05)
[2018-08-24] MEDS: Multivitamin w/ Minerals Tab PO SCH (09:32)
[2018-08-24] MEDS: Vitamin D3 2,000 IU SGL PO SCH (09:34)
--- NOTE | 2018-08-24 17:53 | General Progress Note ---
Subjective - Review of Systems Service Date: 08/24/18 Subjective: Awake, alert, but confused. T 98.8 BP 100/54 P 69 R 20 Objective - Results Result Diagrams: 08/14/18 20:30 08/19/18 07:05 Recent Labs: Laboratory Last Values WBC 6.6 Th/cmm (4.8-10.8) 08/14/18 20:30 RBC 3.96 Mil/cmm (3.80-5.80) 08/14/18 20:30 Hgb 11.6 gm/dL (12-16) L 08/14/18 20:30 Hct 35.2 % (41.0-60) L 08/14/18 20:30 MCV 88.9 fl (80-99) 08/14/18 20:30 MCH 29.3 pg (27.0-31.0) 08/14/18 20:30 MCHC Differential 33.0 pg (28.0-36.0) 08/14/18 20:30 RDW 12.0 % (11.5-20.0) 08/14/18 20:30 Plt Count 252 Th/cmm (150-400) 08/14/18 20:30 MPV 8.3 fl 08/14/18 20:30 Neutrophils % 74.6 % (40.0-80.0) 08/14/18 20:30 Lymphocytes % 15.0 % (20.0-50.0) L 08/14/18 20:30 Monocytes % 8.8 % (2.0-10.0) 08/14/18 20:30 Eosinophils % 0.9 % (0.0-5.0) 08/14/18 20:30 Basophils % 0.7 % (0.0-2.0) 08/14/18 20:30 Sodium 136 mEq/L (136-145) 08/19/18 07:05 Potassium 3.5 mEq/L (3.5-5.1) 08/19/18 07:05 Chloride 105 mEq/L (98-107) 08/19/18 07:05 Carbon Dioxide 24.9 mEq/L (21.0-31.0) 08/19/18 07:05 Anion Gap 9.6 (7.0-16.0) 08/19/18 07:05 BUN 15 mg/dL (7-25) 08/19/18 07:05 Creatinine 0.5 mg/dL (0.7-1.3) L 08/19/18 07:05 Est GFR ( Amer) TNP 08/19/18 07:05 Est GFR (Non-Af Amer) TNP 08/19/18 07:05 BUN/Creatinine Ratio 30.0 08/19/18 07:05 Glucose 106 mg/dL (70-105) H 08/19/18 07:05 Calcium 9.3 mg/dL (8.6-10.3) 08/19/18 07:05 Total Bilirubin 1.2 mg/dL (0.3-1.0) H 08/14/18 20:30 AST 38 U/L (13-39) 08/14/18 20:30 ALT 28 U/L (7-52) 08/14/18 20:30 Alkaline Phosphatase 106 U/L (34-104) H 08/14/18 20:30 Ammonia 52 umol/L (16-53) 08/17/18 10:21 Troponin I 0.03 ng/mL (0.01-0.05) 08/14/18 20:30 B-Natriuretic Peptide 44.2 pg/mL (5.0-100.0) 08/14/18 20:30 Total Protein 6.7 gm/dL (6.0-8.3) 08/14/18 20:30 Albumin 3.5 gm/dL (4.2-5.5) L 08/14/18 20:30 Globulin 3.2 gm/dL 08/14/18 20:30 Albumin/Globulin Ratio 1.1 (1.0-1.8) 08/14/18 20:30 Triglycerides 85 mg/dL (<150) 08/15/18 09:47 Cholesterol 125 mg/dL (<200) 08/15/18 09:47 LDL Cholesterol Direct 74 mg/dL (75-193) L 08/15/18 09:47 HDL Cholesterol 35 mg/dL (23-92) 08/15/18 09:47 TSH 1.20 uIU/ml (0.34-5.60) 08/14/18 20:30 - Physical Exam Vitals and I&O: Vital Signs Temp 98.8 F 08/24/18 14:00 Pulse 89 08/24/18 14:00 Resp 20 08/24/18 14:00 BP 100/54 08/24/18 14:00 Pulse Ox 96 08/24/18 14:00 Intake & Output 08/23/18 08/24/18 08/24/18 18:59 06:59 18:59 Intake Total 60 Balance 60 Intake: Oral 60 Other: # Voids 3 Active Medications: Current Medications Acetaminophen (Tylenol) 650 mg PO Q4HR PRN PRN Reason: Pain (Moderate) Stop: 10/13/18 22:37 Last Admin: 08/19/18 03:18 Dose: 650 mg Al Hydrox/Mg Hydrox/Simethicone (Maalox) 30 ml PO Q4HR PRN PRN Reason: GI DISTRESS Stop: 10/13/18 22:29 Amlodipine Besylate (Norvasc) 10 mg PO DAILY [facility] Stop: 10/14/18 08:59 Last Admin: 08/24/18 09:35 Dose: Not Given Aspirin (Ecotrin) 81 mg PO DAILY [facility] Stop: 10/14/18 08:59 Last Admin: 08/24/18 09:31 Dose: 81 mg Calcium/Vitamin D (Oscal W/Vitamin D) 1 tab PO BID [facility] Stop: 10/14/18 09:44 Last Admin: 08/24/18 17:05 Dose: 1 tab Clonazepam (Klonopin) 1 mg PO TID [facility]; Protocol Stop: 10/16/18 13:59 Last Admin: 08/24/18 14:40 Dose: 1 mg Docusate Sodium (Colace) 100 mg PO BID [facility] Stop: 10/14/18 08:59 Last Admin: 08/24/18 17:05 Dose: 100 mg Donepezil HCl (Aricept) 10 mg PO DAILY [facility] Stop: 10/22/18 08:59 Last Admin: 08/24/18 09:32 Dose: 10 mg Insulin Aspart (Novolog Insulin Sliding Scale) 0 units SUBQ ACHS [facility]; Protocol Stop: 10/14/18 11:29 Last Admin: 08/24/18 17:15 Dose: Not Given Lisinopril (Zestril) 40 mg PO DAILY [facility] Stop: 10/14/18 08:59 Last Admin: 08/24/18 09:36 Dose: Not Given Lorazepam (Ativan) 1 mg PO BID PRN; Protocol PRN Reason: Anxiety Stop: 10/13/18 22:37 Last Admin: 08/18/18 21:50 Dose: 1 mg Magnesium Hydroxide (Milk Of Magnesia) 30 ml PO HS PRN PRN Reason: Constipation Quetiapine Fumarate (Seroquel) 25 mg PO HS [facility]; Protocol Stop: 10/14/18 20:59 Last Admin: 08/23/18 21:40 Dose: 25 mg Quetiapine Fumarate (Seroquel) 12.5 mg PO BID [facility]; Protocol Stop: 10/22/18 08:59 Last Admin: 08/24/18 17:06 Dose: 12.5 mg Tamsulosin HCl (Flomax) 0.4 mg PO HS [facility] Stop: 10/14/18 20:59 Last Admin: 08/23/18 21:40 Dose: 0.4 mg Thiamine HCl (Vitamin B1) 100 mg PO DAILY [facility] Stop: 10/14/18 08:59 Last Admin: 08/24/18 09:31 Dose: 100 mg Tramadol HCl (Ultram) 25 mg PO Q6HR PRN PRN Reason: Pain (Severe) (LEVEL 7-10) Stop: 10/13/18 22:37 Vitamin D (Vitamin D3) 2,000 iu PO DAILY [facility] Stop: 10/14/18 08:59 Last Admin: 08/24/18 09:34 Dose: 2,000 iu Zolpidem Tartrate (Ambien) 5 mg PO HS PRN PRN Reason: Insomnia Stop: 10/13/18 22:29 Last Admin: 08/23/18 19:59 Dose: 5 mg General: Alert HEENT: Atraumatic, PERRLA, EOMI Neck: Supple, no JVD Cardiovascular: Regular rate, Normal S1, Normal S2 Lungs: Clear to auscultation Abdomen: Bowel sounds, Soft Extremities: no Clubbing, no Cyanosis, no Edema Assessment/Plan - Assessment Assessment: psychosis ... continue current treatment HTN .. controlled hepatic encephalopathy ... on lactulose PO chronic liver disease BPH right ulnar fracture dementia anxiety hypokalemia ... Kdur 40meq x 1 dose - Plan Plan: admit to [facility] continue current orders Nutritional Asmnt/Malnutr-PDOC - Dietary Evaluation Malnutrition Findings (Please click <Entered> for more info): Nutritional Asmnt/Malnutrition Start: 08/15/18 14: 11 Text: Status: Complete Freq: Protocol: Document 08/15/18 14:11 [email or web address] (Rec: 08/15/18 14:29 LCSHARDA [email or web address]) Nutritional Asmnt/Malnutrition Patient General Information Nutritional Screening High Risk Diagnosis psychosis, confusion Pertinent Medical Hx/Surgical Hx HTN, metabolic encephalopathy, chronic liver disease, BPH, right ulnar fracture, dementia , anxiety, psychosis Subjective Information Pt seen in mirian-chair in the [place], very confused, not able to communicate. Per LEGAL REFEREE, pt consumed about 50% of breakfast today. Pt needs total assist with meals. blood sugar 204 at admission noted. Current Diet Order/ Nutrition Support pureed Pertinent Medications oscal w/vit D, colace, novolog , seroquel, vit B1, vit D3 Pertinent Labs 08/14 Na 135, Cr 0.6, glucose 204, alb 3.5 Nutritional Hx/Data Height 1.6 m Height (Calculated Centimeters) 160.0 Current Weight (lbs) 54.431 kg Weight (Calculated Kilograms) 54.4 Weight (Calculated Grams) 73948.1 [place] Body Weight 124 Body Mass Index (BMI) 21.2 Weight Status Approriate GI Symptoms GI Symptoms None Last BM 08/14 Difficult in: None Skin Integrity/Comment: intact Current %PO Fair (50-74%) Estimated Nutritional Goals BEE in Kcals: Using Current wt Calories/Kcals/Kg 25-30 Kcals Calculated 6217-3018 Protein: Using Current wt Protein g/k Protein Calculated 55 Fluid: ml 1375-1650ml (1ml/kcal) Nutritional Problem 1. Problem Problem altered nutrition related labs Etiology hyperglycemia Signs/Symptoms: glucose 204 at admission Malnutrition Alert Is there a minimum of two criteria No selected? Query Text:Check all the applicable criteria. A minimum of two criteria are recommended for diagnosis of either severe or non-severe malnutrition. Malnutrition Related to Morbid Obesity Malnutrition related to morbid obesity No Intervention/Recommendation Comments 1. Continue with pureed diet as ordered. Monitor blood sugar. Consider NCS/CCHO diet if glucose continue high. 2. Monitor PO intake, wt, labs and skin integrity 3. F/U as moderate risk in 3-5 days, 08/18-08/20, PO check Expected Outcomes/Goals Expected Outcomes/Goals 1. PO intake to meet at least 75% of nutritional needs. 2. Wt stability, skin to remain intact, labs to approach WNL.
--- NOTE | 2018-08-24 19:26 | Progress Notes ---
DATE: 08/24/2018 SUBJECTIVE: Chart reviewed and the patient interviewed. Also, discussed the patient's condition with the staff and reviewed records and labs. The patient's affect is slightly brighter. The patient is trying to answer my questions today. He seems to be less agitated and less irritable. Also seems to be less confused today. The patient also is compliant with taking his medications with no side effects of medications. It seems that the increase in Seroquel and Klonopin did help the patient's irritability and the patient's confusion. At the same time, still need to monitor his medications. Also, working with field case manager in regard to discharge plans and placement issue. JOB# [id number]
--- NOTE | 2018-08-25 05:38 | General Progress Note ---
Subjective - Review of Systems Service Date: 08/25/18 Subjective: Awake, alert, but confused. T 97.9 BP 129/49 P 75 R 20 Objective - Results Result Diagrams: 08/14/18 20:30 08/19/18 07:05 Recent Labs: Laboratory Last Values WBC 6.6 Th/cmm (4.8-10.8) 08/14/18 20:30 RBC 3.96 Mil/cmm (3.80-5.80) 08/14/18 20:30 Hgb 11.6 gm/dL (12-16) L 08/14/18 20:30 Hct 35.2 % (41.0-60) L 08/14/18 20:30 MCV 88.9 fl (80-99) 08/14/18 20:30 MCH 29.3 pg (27.0-31.0) 08/14/18 20:30 MCHC Differential 33.0 pg (28.0-36.0) 08/14/18 20:30 RDW 12.0 % (11.5-20.0) 08/14/18 20:30 Plt Count 252 Th/cmm (150-400) 08/14/18 20:30 MPV 8.3 fl 08/14/18 20:30 Neutrophils % 74.6 % (40.0-80.0) 08/14/18 20:30 Lymphocytes % 15.0 % (20.0-50.0) L 08/14/18 20:30 Monocytes % 8.8 % (2.0-10.0) 08/14/18 20:30 Eosinophils % 0.9 % (0.0-5.0) 08/14/18 20:30 Basophils % 0.7 % (0.0-2.0) 08/14/18 20:30 Sodium 136 mEq/L (136-145) 08/19/18 07:05 Potassium 3.5 mEq/L (3.5-5.1) 08/19/18 07:05 Chloride 105 mEq/L (98-107) 08/19/18 07:05 Carbon Dioxide 24.9 mEq/L (21.0-31.0) 08/19/18 07:05 Anion Gap 9.6 (7.0-16.0) 08/19/18 07:05 BUN 15 mg/dL (7-25) 08/19/18 07:05 Creatinine 0.5 mg/dL (0.7-1.3) L 08/19/18 07:05 Est GFR ( Amer) TNP 08/19/18 07:05 Est GFR (Non-Af Amer) TNP 08/19/18 07:05 BUN/Creatinine Ratio 30.0 08/19/18 07:05 Glucose 106 mg/dL (70-105) H 08/19/18 07:05 Calcium 9.3 mg/dL (8.6-10.3) 08/19/18 07:05 Total Bilirubin 1.2 mg/dL (0.3-1.0) H 08/14/18 20:30 AST 38 U/L (13-39) 08/14/18 20:30 ALT 28 U/L (7-52) 08/14/18 20:30 Alkaline Phosphatase 106 U/L (34-104) H 08/14/18 20:30 Ammonia 52 umol/L (16-53) 08/17/18 10:21 Troponin I 0.03 ng/mL (0.01-0.05) 08/14/18 20:30 B-Natriuretic Peptide 44.2 pg/mL (5.0-100.0) 08/14/18 20:30 Total Protein 6.7 gm/dL (6.0-8.3) 08/14/18 20:30 Albumin 3.5 gm/dL (4.2-5.5) L 08/14/18 20:30 Globulin 3.2 gm/dL 08/14/18 20:30 Albumin/Globulin Ratio 1.1 (1.0-1.8) 08/14/18 20:30 Triglycerides 85 mg/dL (<150) 08/15/18 09:47 Cholesterol 125 mg/dL (<200) 08/15/18 09:47 LDL Cholesterol Direct 74 mg/dL (75-193) L 08/15/18 09:47 HDL Cholesterol 35 mg/dL (23-92) 08/15/18 09:47 TSH 1.20 uIU/ml (0.34-5.60) 08/14/18 20:30 - Physical Exam Vitals and I&O: Vital Signs Temp 97.9 F 08/25/18 05:13 Pulse 86 08/25/18 05:13 Resp 20 08/25/18 05:13 BP 129/49 08/25/18 05:13 Pulse Ox 98 08/25/18 05:13 Intake & Output 08/24/18 08/24/18 08/25/18 06:59 18:59 06:59 Intake Total 60 1500 240 Balance 60 1500 240 Intake: Oral 60 1500 240 Other: # Voids 3 4 2 # Bowel Movements 1 Active Medications: Current Medications Acetaminophen (Tylenol) 650 mg PO Q4HR PRN PRN Reason: Pain (Moderate) Stop: 10/13/18 22:37 Last Admin: 08/19/18 03:18 Dose: 650 mg Al Hydrox/Mg Hydrox/Simethicone (Maalox) 30 ml PO Q4HR PRN PRN Reason: GI DISTRESS Stop: 10/13/18 22:29 Amlodipine Besylate (Norvasc) 10 mg PO DAILY [facility] Stop: 10/14/18 08:59 Last Admin: 08/24/18 09:35 Dose: Not Given Aspirin (Ecotrin) 81 mg PO DAILY [facility] Stop: 10/14/18 08:59 Last Admin: 08/24/18 09:31 Dose: 81 mg Calcium/Vitamin D (Oscal W/Vitamin D) 1 tab PO BID [facility] Stop: 10/14/18 09:44 Last Admin: 08/24/18 17:05 Dose: 1 tab Clonazepam (Klonopin) 1 mg PO TID [facility]; Protocol Stop: 10/16/18 13:59 Last Admin: 08/24/18 20:52 Dose: 1 mg Docusate Sodium (Colace) 100 mg PO BID [facility] Stop: 10/14/18 08:59 Last Admin: 08/24/18 17:05 Dose: 100 mg Donepezil HCl (Aricept) 10 mg PO DAILY [facility] Stop: 10/22/18 08:59 Last Admin: 08/24/18 09:32 Dose: 10 mg Insulin Aspart (Novolog Insulin Sliding Scale) 0 units SUBQ ACHS [facility]; Protocol Stop: 10/14/18 11:29 Last Admin: 08/24/18 20:55 Dose: 2 units Lisinopril (Zestril) 40 mg PO DAILY [facility] Stop: 10/14/18 08:59 Last Admin: 08/24/18 09:36 Dose: Not Given Lorazepam (Ativan) 1 mg PO BID PRN; Protocol PRN Reason: Anxiety Stop: 10/13/18 22:37 Last Admin: 08/18/18 21:50 Dose: 1 mg Magnesium Hydroxide (Milk Of Magnesia) 30 ml PO HS PRN PRN Reason: Constipation Quetiapine Fumarate (Seroquel) 25 mg PO HS [facility]; Protocol Stop: 10/14/18 20:59 Last Admin: 08/24/18 20:53 Dose: 25 mg Quetiapine Fumarate (Seroquel) 12.5 mg PO BID [facility]; Protocol Stop: 10/22/18 08:59 Last Admin: 08/24/18 17:06 Dose: 12.5 mg Tamsulosin HCl (Flomax) 0.4 mg PO HS [facility] Stop: 10/14/18 20:59 Last Admin: 08/24/18 20:54 Dose: 0.4 mg Thiamine HCl (Vitamin B1) 100 mg PO DAILY [facility] Stop: 10/14/18 08:59 Last Admin: 08/24/18 09:31 Dose: 100 mg Tramadol HCl (Ultram) 25 mg PO Q6HR PRN PRN Reason: Pain (Severe) (LEVEL 7-10) Stop: 10/13/18 22:37 Last Admin: 08/24/18 20:54 Dose: 25 mg Vitamin D (Vitamin D3) 2,000 iu PO DAILY [facility] Stop: 10/14/18 08:59 Last Admin: 08/24/18 09:34 Dose: 2,000 iu Zolpidem Tartrate (Ambien) 5 mg PO HS PRN PRN Reason: Insomnia Stop: 10/13/18 22:29 Last Admin: 08/24/18 20:53 Dose: 5 mg General: Alert HEENT: Atraumatic, PERRLA, EOMI Neck: Supple, no JVD Cardiovascular: Regular rate, Normal S1, Normal S2 Lungs: Clear to auscultation Abdomen: Bowel sounds, Soft Extremities: no Clubbing, no Cyanosis, no Edema Assessment/Plan - Assessment Assessment: psychosis ... continue current treatment HTN .. controlled hepatic encephalopathy ... on lactulose PO chronic liver disease BPH right ulnar fracture dementia anxiety hypokalemia ... Kdur 40meq x 1 dose - Plan Plan: continue current orders Nutritional Asmnt/Malnutr-PDOC - Dietary Evaluation Malnutrition Findings (Please click <Entered> for more info): Nutritional Asmnt/Malnutrition Start: 08/15/18 14: 11 Text: Status: Complete Freq: Protocol: Document 08/15/18 14:11 YOVANY (Rec: 08/15/18 14:29 [email or web address] [email or web address]) Nutritional Asmnt/Malnutrition Patient General Information Nutritional Screening High Risk Diagnosis psychosis, confusion Pertinent Medical Hx/Surgical Hx HTN, metabolic encephalopathy, chronic liver disease, BPH, right ulnar fracture, dementia , anxiety, psychosis Subjective Information Pt seen in mirian-chair in the [place], very confused, not able to communicate. Per [employer] STUD[employer] PROFESSOR, pt consumed about 50% of breakfast today. Pt needs total assist with meals. blood sugar 204 at admission noted. Current Diet Order/ Nutrition Support pureed Pertinent Medications oscal w/vit D, colace, novolog , seroquel, vit B1, vit D3 Pertinent Labs 08/14 Na 135, Cr 0.6, glucose 204, alb 3.5 Nutritional Hx/Data Height 1.6 m Height (Calculated Centimeters) 160.0 Current Weight (lbs) 54.431 kg Weight (Calculated Kilograms) 54.4 Weight (Calculated Grams) 83393.1 [place] Body Weight 124 Body Mass Index (BMI) 21.2 Weight Status Approriate GI Symptoms GI Symptoms None Last BM 08/14 Difficult in: None Skin Integrity/Comment: intact Current %PO Fair (50-74%) Estimated Nutritional Goals BEE in Kcals: Using Current wt Calories/Kcals/Kg 25-30 Kcals Calculated 2721-4144 Protein: Using Current wt Protein g/k Protein Calculated 55 Fluid: ml 1375-1650ml (1ml/kcal) Nutritional Problem 1. Problem Problem altered nutrition related labs Etiology hyperglycemia Signs/Symptoms: glucose 204 at admission Malnutrition Alert Is there a minimum of two criteria No selected? Query Text:Check all the applicable criteria. A minimum of two criteria are recommended for diagnosis of either severe or non-severe malnutrition. Malnutrition Related to Morbid Obesity Malnutrition related to morbid obesity No Intervention/Recommendation Comments 1. Continue with pureed diet as ordered. Monitor blood sugar. Consider NCS/CCHO diet if glucose continue high. 2. Monitor PO intake, wt, labs and skin integrity 3. F/U as moderate risk in 3-5 days, 08/18-9/24, PO check Expected Outcomes/Goals Expected Outcomes/Goals 1. PO intake to meet at least 75% of nutritional needs. 2. Wt stability, skin to remain intact, labs to approach WNL.
[2018-08-25] MEDS: INSULIN ASPART SLIDING SCALE 100 UNITS/ML UNIT SUBQ SCH ×4 (06:36→20:34)
[2018-08-25] MEDS: Multivitamin w/ Minerals Tab PO SCH (09:28)
[2018-08-25] MEDS: Vitamin D3 2,000 IU SGL PO SCH (09:33)
[2018-08-25] MEDS: Calcium Carb/Vit D 500 mg/200 U Tab PO SCH ×2 (09:33→16:46)
--- NOTE | 2018-08-25 19:40 | Progress Notes ---
DATE: 08/25/2018 PSYCHIATRIC PROGRESS NOTE SUBJECTIVE: Chart reviewed and the patient interviewed. Also discussed the patient's condition with the staff and reviewed records and labs. The patient is slightly calmer and he continue to improve and is easier to follow directions. He still has episodes of agitation but is decreasing. He also is compliant with taking his medications with no side effects of medications. He also is still monitored for any behavioral issues. Otherwise, continuous pillowcase cutter still working on discharge plans and placement issue. ASSESSMENT: The patient is less agitated. TREATMENT PLAN: We will start the patient on Zyprexa 2.5 mg twice a day and we will discontinue Seroquel. Also, continue to work on his placement issue and on discharge plans. JOB# [id number]
--- NOTE | 2018-08-26 05:23 | General Progress Note ---
Subjective - Review of Systems Service Date: 08/26/18 Subjective: Awake, alert, but confused. T 97.8 BP 102/58 P 75 R 18 Objective - Results Result Diagrams: 08/14/18 20:30 08/19/18 07:05 Recent Labs: Laboratory Last Values WBC 6.6 Th/cmm (4.8-10.8) 08/14/18 20:30 RBC 3.96 Mil/cmm (3.80-5.80) 08/14/18 20:30 Hgb 11.6 gm/dL (12-16) L 08/14/18 20:30 Hct 35.2 % (41.0-60) L 08/14/18 20:30 MCV 88.9 fl (80-99) 08/14/18 20:30 MCH 29.3 pg (27.0-31.0) 08/14/18 20:30 MCHC Differential 33.0 pg (28.0-36.0) 08/14/18 20:30 RDW 12.0 % (11.5-20.0) 08/14/18 20:30 Plt Count 252 Th/cmm (150-400) 08/14/18 20:30 MPV 8.3 fl 08/14/18 20:30 Neutrophils % 74.6 % (40.0-80.0) 08/14/18 20:30 Lymphocytes % 15.0 % (20.0-50.0) L 08/14/18 20:30 Monocytes % 8.8 % (2.0-10.0) 08/14/18 20:30 Eosinophils % 0.9 % (0.0-5.0) 08/14/18 20:30 Basophils % 0.7 % (0.0-2.0) 08/14/18 20:30 Sodium 136 mEq/L (136-145) 08/19/18 07:05 Potassium 3.5 mEq/L (3.5-5.1) 08/19/18 07:05 Chloride 105 mEq/L (98-107) 08/19/18 07:05 Carbon Dioxide 24.9 mEq/L (21.0-31.0) 08/19/18 07:05 Anion Gap 9.6 (7.0-16.0) 08/19/18 07:05 BUN 15 mg/dL (7-25) 08/19/18 07:05 Creatinine 0.5 mg/dL (0.7-1.3) L 08/19/18 07:05 Est GFR ( Amer) TNP 08/19/18 07:05 Est GFR (Non-Af Amer) TNP 08/19/18 07:05 BUN/Creatinine Ratio 30.0 08/19/18 07:05 Glucose 106 mg/dL (70-105) H 08/19/18 07:05 Calcium 9.3 mg/dL (8.6-10.3) 08/19/18 07:05 Total Bilirubin 1.2 mg/dL (0.3-1.0) H 08/14/18 20:30 AST 38 U/L (13-39) 08/14/18 20:30 ALT 28 U/L (7-52) 08/14/18 20:30 Alkaline Phosphatase 106 U/L (34-104) H 08/14/18 20:30 Ammonia 52 umol/L (16-53) 08/17/18 10:21 Troponin I 0.03 ng/mL (0.01-0.05) 08/14/18 20:30 B-Natriuretic Peptide 44.2 pg/mL (5.0-100.0) 08/14/18 20:30 Total Protein 6.7 gm/dL (6.0-8.3) 08/14/18 20:30 Albumin 3.5 gm/dL (4.2-5.5) L 08/14/18 20:30 Globulin 3.2 gm/dL 08/14/18 20:30 Albumin/Globulin Ratio 1.1 (1.0-1.8) 08/14/18 20:30 Triglycerides 85 mg/dL (<150) 08/15/18 09:47 Cholesterol 125 mg/dL (<200) 08/15/18 09:47 LDL Cholesterol Direct 74 mg/dL (75-193) L 08/15/18 09:47 HDL Cholesterol 35 mg/dL (23-92) 08/15/18 09:47 TSH 1.20 uIU/ml (0.34-5.60) 08/14/18 20:30 - Physical Exam Vitals and I&O: Vital Signs Temp 97.8 F 08/25/18 20:06 Pulse 75 08/25/18 20:06 Resp 18 08/25/18 20:06 BP 102/58 08/25/18 20:06 Pulse Ox 96 08/25/18 20:06 Intake & Output 08/25/18 08/25/18 08/26/18 06:59 18:59 06:59 Intake Total 240 900 240 Output Total 1 Balance 240 900 239 Intake: Oral 240 900 240 Output: Urine/Stool Mix 1 Other: # Voids 2 4 1 # Bowel Movements 3 1 Active Medications: Current Medications Acetaminophen (Tylenol) 650 mg PO Q4HR PRN PRN Reason: Pain (Moderate) Stop: 10/13/18 22:37 Last Admin: 08/25/18 20:34 Dose: 650 mg Al Hydrox/Mg Hydrox/Simethicone (Maalox) 30 ml PO Q4HR PRN PRN Reason: GI DISTRESS Stop: 10/13/18 22:29 Amlodipine Besylate (Norvasc) 10 mg PO DAILY [facility] Stop: 10/14/18 08:59 Last Admin: 08/25/18 09:32 Dose: 10 mg Aspirin (Ecotrin) 81 mg PO DAILY [facility] Stop: 10/14/18 08:59 Last Admin: 08/25/18 09:33 Dose: 81 mg Calcium/Vitamin D (Oscal W/Vitamin D) 1 tab PO BID [facility] Stop: 10/14/18 09:44 Last Admin: 08/25/18 16:46 Dose: 1 tab Clonazepam (Klonopin) 1 mg PO TID [facility]; Protocol Stop: 10/16/18 13:59 Last Admin: 08/25/18 20:33 Dose: 1 mg Docusate Sodium (Colace) 100 mg PO BID [facility] Stop: 10/14/18 08:59 Last Admin: 08/25/18 16:46 Dose: 100 mg Donepezil HCl (Aricept) 10 mg PO DAILY [facility] Stop: 10/22/18 08:59 Last Admin: 08/25/18 09:33 Dose: 10 mg Insulin Aspart (Novolog Insulin Sliding Scale) 0 units SUBQ ACHS [facility]; Protocol Stop: 10/14/18 11:29 Last Admin: 08/25/18 20:34 Dose: Not Given Lisinopril (Zestril) 40 mg PO DAILY [facility] Stop: 10/14/18 08:59 Last Admin: 08/25/18 09:28 Dose: 40 mg Lorazepam (Ativan) 1 mg PO BID PRN; Protocol PRN Reason: Anxiety Stop: 10/13/18 22:37 Last Admin: 08/18/18 21:50 Dose: 1 mg Magnesium Hydroxide (Milk Of Magnesia) 30 ml PO HS PRN PRN Reason: Constipation Olanzapine (Zyprexa) 2.5 mg PO BID [facility]; Protocol Stop: 10/24/18 16:59 Last Admin: 08/25/18 16:46 Dose: 2.5 mg Tamsulosin HCl (Flomax) 0.4 mg PO HS [facility] Stop: 10/14/18 20:59 Last Admin: 08/25/18 20:34 Dose: 0.4 mg Thiamine HCl (Vitamin B1) 100 mg PO DAILY [facility] Stop: 10/14/18 08:59 Last Admin: 08/25/18 09:33 Dose: 100 mg Tramadol HCl (Ultram) 25 mg PO Q6HR PRN PRN Reason: Pain (Severe) (LEVEL 7-10) Stop: 10/13/18 22:37 Last Admin: 08/24/18 20:54 Dose: 25 mg Vitamin D (Vitamin D3) 2,000 iu PO DAILY [facility] Stop: 10/14/18 08:59 Last Admin: 08/25/18 09:33 Dose: 2,000 iu Zolpidem Tartrate (Ambien) 5 mg PO HS PRN PRN Reason: Insomnia Stop: 10/13/18 22:29 Last Admin: 08/25/18 20:35 Dose: 5 mg General: Alert HEENT: Atraumatic, PERRLA, EOMI Neck: Supple, no JVD Cardiovascular: Regular rate, Normal S1, Normal S2 Lungs: Clear to auscultation Abdomen: Bowel sounds, Soft Extremities: no Clubbing, no Cyanosis, no Edema Assessment/Plan - Assessment Assessment: psychosis ... continue current treatment HTN .. controlled hepatic encephalopathy ... on lactulose PO chronic liver disease BPH right ulnar fracture dementia anxiety hypokalemia ... Kdur 40meq x 1 dose - Plan Plan: continue current orders Nutritional Asmnt/Malnutr-PDOC - Dietary Evaluation Malnutrition Findings (Please click <Entered> for more info): Nutritional Asmnt/Malnutrition Start: 08/15/18 14: 11 Text: Status: Complete Freq: Protocol: Document 08/15/18 14:11 LCHENG (Rec: 08/15/18 14:29 LCHENG [email or web address]) Nutritional Asmnt/Malnutrition Patient General Information Nutritional Screening High Risk Diagnosis psychosis, confusion Pertinent Medical Hx/Surgical Hx HTN, metabolic encephalopathy, chronic liver disease, BPH, right ulnar fracture, dementia , anxiety, psychosis Subjective Information Pt seen in mirian-chair in the ne[place], very confused, not able to communicate. Per [employer], pt consumed about 50% of breakfast today. Pt needs total assist with meals. blood sugar 204 at admission noted. Current Diet Order/ Nutrition Support pureed Pertinent Medications oscal w/vit D, colace, novolog , seroquel, vit B1, vit D3 Pertinent Labs 08/14 Na 135, Cr 0.6, glucose 204, alb 3.5 Nutritional Hx/Data Height 1.6 m Height (Calculated Centimeters) 160.0 Current Weight (lbs) 54.431 kg Weight (Calculated Kilograms) 54.4 Weight (Calculated Grams) 76459.1 [place] Body Weight 124 Body Mass Index (BMI) 21.2 Weight Status Approriate GI Symptoms GI Symptoms None Last BM 08/14 Difficult in: None Skin Integrity/Comment: intact Current %PO Fair (50-74%) Estimated Nutritional Goals BEE in Kcals: Using Current wt Calories/Kcals/Kg 25-30 Kcals Calculated 6491-0156 Protein: Using Current wt Protein g/k Protein Calculated 55 Fluid: ml 1375-1650ml (1ml/kcal) Nutritional Problem 1. Problem Problem altered nutrition related labs Etiology hyperglycemia Signs/Symptoms: glucose 204 at admission Malnutrition Alert Is there a minimum of two criteria No selected? Query Text:Check all the applicable criteria. A minimum of two criteria are recommended for diagnosis of either severe or non-severe malnutrition. Malnutrition Related to Morbid Obesity Malnutrition related to morbid obesity No Intervention/Recommendation Comments 1. Continue with pureed diet as ordered. Monitor blood sugar. Consider NCS/CCHO diet if glucose continue high. 2. Monitor PO intake, wt, labs and skin integrity 3. F/U as moderate risk in 3-5 days, 08/18-08/20, PO check Expected Outcomes/Goals Expected Outcomes/Goals 1. PO intake to meet at least 75% of nutritional needs. 2. Wt stability, skin to remain intact, labs to approach WNL.
[2018-08-26] MEDS: INSULIN ASPART SLIDING SCALE 100 UNITS/ML UNIT SUBQ SCH ×4 (06:37→21:14)
[2018-08-26] MEDS: Vitamin D3 2,000 IU SGL PO SCH (08:42)
[2018-08-26] MEDS: Calcium Carb/Vit D 500 mg/200 U Tab PO SCH ×2 (08:42→16:39)
[2018-08-26] MEDS: Multivitamin w/ Minerals Tab PO SCH (08:42)
[2018-08-27] MEDS: INSULIN ASPART SLIDING SCALE 100 UNITS/ML UNIT SUBQ SCH ×4 (06:33→20:33)
--- NOTE | 2018-08-27 08:30 | General Progress Note ---
Subjective - Review of Systems Service Date: 08/27/18 Subjective: Awake, alert, but confused. T 99.3 BP 106/55 P 97 R 20 Objective - Results Result Diagrams: 08/14/18 20:30 08/19/18 07:05 Recent Labs: Laboratory Last Values WBC 6.6 Th/cmm (4.8-10.8) 08/14/18 20:30 RBC 3.96 Mil/cmm (3.80-5.80) 08/14/18 20:30 Hgb 11.6 gm/dL (12-16) L 08/14/18 20:30 Hct 35.2 % (41.0-60) L 08/14/18 20:30 MCV 88.9 fl (80-99) 08/14/18 20:30 MCH 29.3 pg (27.0-31.0) 08/14/18 20:30 MCHC Differential 33.0 pg (28.0-36.0) 08/14/18 20:30 RDW 12.0 % (11.5-20.0) 08/14/18 20:30 Plt Count 252 Th/cmm (150-400) 08/14/18 20:30 MPV 8.3 fl 08/14/18 20:30 Neutrophils % 74.6 % (40.0-80.0) 08/14/18 20:30 Lymphocytes % 15.0 % (20.0-50.0) L 08/14/18 20:30 Monocytes % 8.8 % (2.0-10.0) 08/14/18 20:30 Eosinophils % 0.9 % (0.0-5.0) 08/14/18 20:30 Basophils % 0.7 % (0.0-2.0) 08/14/18 20:30 Sodium 136 mEq/L (136-145) 08/19/18 07:05 Potassium 3.5 mEq/L (3.5-5.1) 08/19/18 07:05 Chloride 105 mEq/L (98-107) 08/19/18 07:05 Carbon Dioxide 24.9 mEq/L (21.0-31.0) 08/19/18 07:05 Anion Gap 9.6 (7.0-16.0) 08/19/18 07:05 BUN 15 mg/dL (7-25) 08/19/18 07:05 Creatinine 0.5 mg/dL (0.7-1.3) L 08/19/18 07:05 Est GFR ( Amer) TNP 08/19/18 07:05 Est GFR (Non-Af Amer) TNP 08/19/18 07:05 BUN/Creatinine Ratio 30.0 08/19/18 07:05 Glucose 106 mg/dL (70-105) H 08/19/18 07:05 Calcium 9.3 mg/dL (8.6-10.3) 08/19/18 07:05 Total Bilirubin 1.2 mg/dL (0.3-1.0) H 08/14/18 20:30 AST 38 U/L (13-39) 08/14/18 20:30 ALT 28 U/L (7-52) 08/14/18 20:30 Alkaline Phosphatase 106 U/L (34-104) H 08/14/18 20:30 Ammonia 52 umol/L (16-53) 08/17/18 10:21 Troponin I 0.03 ng/mL (0.01-0.05) 08/14/18 20:30 B-Natriuretic Peptide 44.2 pg/mL (5.0-100.0) 08/14/18 20:30 Total Protein 6.7 gm/dL (6.0-8.3) 08/14/18 20:30 Albumin 3.5 gm/dL (4.2-5.5) L 08/14/18 20:30 Globulin 3.2 gm/dL 08/14/18 20:30 Albumin/Globulin Ratio 1.1 (1.0-1.8) 08/14/18 20:30 Triglycerides 85 mg/dL (<150) 08/15/18 09:47 Cholesterol 125 mg/dL (<200) 08/15/18 09:47 LDL Cholesterol Direct 74 mg/dL (75-193) L 08/15/18 09:47 HDL Cholesterol 35 mg/dL (23-92) 08/15/18 09:47 TSH 1.20 uIU/ml (0.34-5.60) 08/14/18 20:30 - Physical Exam Vitals and I&O: Vital Signs Temp 99.3 F 08/27/18 05:57 Pulse 97 08/27/18 05:57 Resp 20 08/27/18 05:57 BP 106/55 08/27/18 05:57 Pulse Ox 97 08/27/18 05:57 Intake & Output 08/26/18 08/27/18 08/27/18 18:59 06:59 18:59 Intake Total 480 Balance 480 Intake: Oral 480 Other: # Voids 2 Active Medications: Current Medications Acetaminophen (Tylenol) 650 mg PO Q4HR PRN PRN Reason: Pain (Moderate) Stop: 10/13/18 22:37 Last Admin: 08/25/18 20:34 Dose: 650 mg Al Hydrox/Mg Hydrox/Simethicone (Maalox) 30 ml PO Q4HR PRN PRN Reason: GI DISTRESS Stop: 10/13/18 22:29 Amlodipine Besylate (Norvasc) 10 mg PO DAILY [facility] Stop: 10/14/18 08:59 Last Admin: 08/26/18 08:44 Dose: Not Given Aspirin (Ecotrin) 81 mg PO DAILY [facility] Stop: 10/14/18 08:59 Last Admin: 08/26/18 08:42 Dose: 81 mg Calcium/Vitamin D (Oscal W/Vitamin D) 1 tab PO BID [facility] Stop: 10/14/18 09:44 Last Admin: 08/26/18 16:39 Dose: 1 tab Clonazepam (Klonopin) 1 mg PO TID [facility]; Protocol Stop: 10/16/18 13:59 Last Admin: 08/26/18 21:15 Dose: 1 mg Docusate Sodium (Colace) 100 mg PO BID [facility] Stop: 10/14/18 08:59 Last Admin: 08/26/18 16:39 Dose: 100 mg Donepezil HCl (Aricept) 10 mg PO DAILY [facility] Stop: 10/22/18 08:59 Last Admin: 08/26/18 08:43 Dose: 10 mg Insulin Aspart (Novolog Insulin Sliding Scale) 0 units SUBQ ACHS [facility]; Protocol Stop: 10/14/18 11:29 Last Admin: 08/27/18 06:33 Dose: Not Given Lisinopril (Zestril) 40 mg PO DAILY [facility] Stop: 10/14/18 08:59 Last Admin: 08/26/18 08:43 Dose: Not Given Lorazepam (Ativan) 1 mg PO BID PRN; Protocol PRN Reason: Anxiety Stop: 10/13/18 22:37 Last Admin: 08/26/18 16:39 Dose: 1 mg Magnesium Hydroxide (Milk Of Magnesia) 30 ml PO HS PRN PRN Reason: Constipation Olanzapine (Zyprexa) 2.5 mg PO BID [facility]; Protocol Stop: 10/24/18 16:59 Last Admin: 08/26/18 16:39 Dose: 2.5 mg Tamsulosin HCl (Flomax) 0.4 mg PO HS [facility] Stop: 10/14/18 20:59 Last Admin: 08/26/18 21:15 Dose: 0.4 mg Thiamine HCl (Vitamin B1) 100 mg PO DAILY [facility] Stop: 10/14/18 08:59 Last Admin: 08/26/18 08:42 Dose: 100 mg Tramadol HCl (Ultram) 25 mg PO Q6HR PRN PRN Reason: Pain (Severe) (LEVEL 7-10) Stop: 10/13/18 22:37 Last Admin: 08/24/18 20:54 Dose: 25 mg Vitamin D (Vitamin D3) 2,000 iu PO DAILY [facility] Stop: 10/14/18 08:59 Last Admin: 08/26/18 08:42 Dose: 2,000 iu Zolpidem Tartrate (Ambien) 5 mg PO HS PRN PRN Reason: Insomnia Stop: 10/13/18 22:29 Last Admin: 08/25/18 20:35 Dose: 5 mg General: Alert HEENT: Atraumatic, PERRLA, EOMI Neck: Supple, no JVD Cardiovascular: Regular rate, Normal S1, Normal S2 Lungs: Clear to auscultation Abdomen: Bowel sounds, Soft Extremities: no Clubbing, no Cyanosis, no Edema Assessment/Plan - Assessment Assessment: psychosis ... continue current treatment HTN .. controlled hepatic encephalopathy ... on lactulose PO chronic liver disease BPH right ulnar fracture dementia anxiety hypokalemia ... resolved. - Plan Plan: continue current orders Nutritional Asmnt/Malnutr-PDOC - Dietary Evaluation Malnutrition Findings (Please click <Entered> for more info): Nutritional Asmnt/Malnutrition Start: 08/15/18 14: 11 Text: Status: Complete Freq: Protocol: Document 08/15/18 14:11 KASIEG (Rec: 08/15/18 14:29 LCHENG [email or web address]) Nutritional Asmnt/Malnutrition Patient General Information Nutritional Screening High Risk Diagnosis psychosis, confusion Pertinent Medical Hx/Surgical Hx HTN, metabolic encephalopathy, chronic liver disease, BPH, right ulnar fracture, dementia , anxiety, psychosis Subjective Information Pt seen in mirian-chair in the [place], very confused, not able to communicate. Per [employer], pt consumed about 50% of breakfast today. Pt needs total assist with meals. blood sugar 204 at admission noted. Current Diet Order/ Nutrition Support pureed Pertinent Medications oscal w/vit D, colace, novolog , seroquel, vit B1, vit D3 Pertinent Labs 08/14 Na 135, Cr 0.6, glucose 204, alb 3.5 Nutritional Hx/Data Height 1.6 m Height (Calculated Centimeters) 160.0 Current Weight (lbs) 54.431 kg Weight (Calculated Kilograms) 54.4 Weight (Calculated Grams) 20643.1 [place] Body Weight 124 Body Mass Index (BMI) 21.2 Weight Status Approriate GI Symptoms GI Symptoms None Last BM 08/14 Difficult in: None Skin Integrity/Comment: intact Current %PO Fair (50-74%) Estimated Nutritional Goals BEE in Kcals: Using Current wt Calories/Kcals/Kg 25-30 Kcals Calculated 2625-6287 Protein: Using Current wt Protein g/k Protein Calculated 55 Fluid: ml 1375-1650ml (1ml/kcal) Nutritional Problem 1. Problem Problem altered nutrition related labs Etiology hyperglycemia Signs/Symptoms: glucose 204 at admission Malnutrition Alert Is there a minimum of two criteria No selected? Query Text:Check all the applicable criteria. A minimum of two criteria are recommended for diagnosis of either severe or non-severe malnutrition. Malnutrition Related to Morbid Obesity Malnutrition related to morbid obesity No Intervention/Recommendation Comments 1. Continue with pureed diet as ordered. Monitor blood sugar. Consider NCS/CCHO diet if glucose continue high. 2. Monitor PO intake, wt, labs and skin integrity 3. F/U as moderate risk in 3-5 days, 08/18-08/20, PO check Expected Outcomes/Goals Expected Outcomes/Goals 1. PO intake to meet at least 75% of nutritional needs. 2. Wt stability, skin to remain intact, labs to approach WNL.
[2018-08-27] MEDS: Vitamin D3 2,000 IU SGL PO SCH (09:27)
[2018-08-27] MEDS: Calcium Carb/Vit D 500 mg/200 U Tab PO SCH ×2 (09:27→16:53)
[2018-08-27] MEDS: Multivitamin w/ Minerals Tab PO SCH (09:28)
--- NOTE | 2018-08-28 03:29 | Progress Notes ---
DATE: 08/27/2018 SUBJECTIVE: Chart reviewed and the patient interviewed. Also, discussed the patient's condition with the staff and reviewed records and labs. The patient's affect is brighter. ____ more. He was waving and saying "Hi." He also is slightly easier to redirect him. The patient denied intention to harm himself or others and he is trying to cooperate and comply with treatment. ASSESSMENT: The patient seems to be calmer and is showing some improvement. TREATMENT PLAN: Continue to monitor behavior and condition closely. Also, continue adjusting psychotropic medications and followup. JOB# [id number]
[2018-08-28] MEDS: INSULIN ASPART SLIDING SCALE 100 UNITS/ML UNIT SUBQ SCH ×4 (06:32→21:52)
--- NOTE | 2018-08-28 08:46 | General Progress Note ---
Subjective - Review of Systems Service Date: 08/28/18 Subjective: Awake, alert, but confused. T 97.9 BP 154/69 P 97 R 18 Objective - Results Result Diagrams: 08/14/18 20:30 08/19/18 07:05 Recent Labs: Laboratory Last Values WBC 6.6 Th/cmm (4.8-10.8) 08/14/18 20:30 RBC 3.96 Mil/cmm (3.80-5.80) 08/14/18 20:30 Hgb 11.6 gm/dL (12-16) L 08/14/18 20:30 Hct 35.2 % (41.0-60) L 08/14/18 20:30 MCV 88.9 fl (80-99) 08/14/18 20:30 MCH 29.3 pg (27.0-31.0) 08/14/18 20:30 MCHC Differential 33.0 pg (28.0-36.0) 08/14/18 20:30 RDW 12.0 % (11.5-20.0) 08/14/18 20:30 Plt Count 252 Th/cmm (150-400) 08/14/18 20:30 MPV 8.3 fl 08/14/18 20:30 Neutrophils % 74.6 % (40.0-80.0) 08/14/18 20:30 Lymphocytes % 15.0 % (20.0-50.0) L 08/14/18 20:30 Monocytes % 8.8 % (2.0-10.0) 08/14/18 20:30 Eosinophils % 0.9 % (0.0-5.0) 08/14/18 20:30 Basophils % 0.7 % (0.0-2.0) 08/14/18 20:30 Sodium 136 mEq/L (136-145) 08/19/18 07:05 Potassium 3.5 mEq/L (3.5-5.1) 08/19/18 07:05 Chloride 105 mEq/L (98-107) 08/19/18 07:05 Carbon Dioxide 24.9 mEq/L (21.0-31.0) 08/19/18 07:05 Anion Gap 9.6 (7.0-16.0) 08/19/18 07:05 BUN 15 mg/dL (7-25) 08/19/18 07:05 Creatinine 0.5 mg/dL (0.7-1.3) L 08/19/18 07:05 Est GFR ( Amer) TNP 08/19/18 07:05 Est GFR (Non-Af Amer) TNP 08/19/18 07:05 BUN/Creatinine Ratio 30.0 08/19/18 07:05 Glucose 106 mg/dL (70-105) H 08/19/18 07:05 Calcium 9.3 mg/dL (8.6-10.3) 08/19/18 07:05 Total Bilirubin 1.2 mg/dL (0.3-1.0) H 08/14/18 20:30 AST 38 U/L (13-39) 08/14/18 20:30 ALT 28 U/L (7-52) 08/14/18 20:30 Alkaline Phosphatase 106 U/L (34-104) H 08/14/18 20:30 Ammonia 52 umol/L (16-53) 08/17/18 10:21 Troponin I 0.03 ng/mL (0.01-0.05) 08/14/18 20:30 B-Natriuretic Peptide 44.2 pg/mL (5.0-100.0) 08/14/18 20:30 Total Protein 6.7 gm/dL (6.0-8.3) 08/14/18 20:30 Albumin 3.5 gm/dL (4.2-5.5) L 08/14/18 20:30 Globulin 3.2 gm/dL 08/14/18 20:30 Albumin/Globulin Ratio 1.1 (1.0-1.8) 08/14/18 20:30 Triglycerides 85 mg/dL (<150) 08/15/18 09:47 Cholesterol 125 mg/dL (<200) 08/15/18 09:47 LDL Cholesterol Direct 74 mg/dL (75-193) L 08/15/18 09:47 HDL Cholesterol 35 mg/dL (23-92) 08/15/18 09:47 TSH 1.20 uIU/ml (0.34-5.60) 08/14/18 20:30 - Physical Exam Vitals and I&O: Vital Signs Temp 97.9 F 08/28/18 05:15 Pulse 97 08/28/18 05:15 Resp 18 08/28/18 05:15 BP 154/69 08/28/18 05:15 Pulse Ox 99 08/27/18 20:10 Intake & Output 08/27/18 08/28/18 08/28/18 18:59 06:59 18:59 Intake Total 480 Balance 480 Intake: Oral 480 Other: # Voids 2 2 # Bowel Movements 2 Active Medications: Current Medications Acetaminophen (Tylenol) 650 mg PO Q4HR PRN PRN Reason: Pain (Moderate) Stop: 10/13/18 22:37 Last Admin: 08/25/18 20:34 Dose: 650 mg Al Hydrox/Mg Hydrox/Simethicone (Maalox) 30 ml PO Q4HR PRN PRN Reason: GI DISTRESS Stop: 10/13/18 22:29 Amlodipine Besylate (Norvasc) 10 mg PO DAILY [facility] Stop: 10/14/18 08:59 Last Admin: 08/27/18 09:26 Dose: Not Given Aspirin (Ecotrin) 81 mg PO DAILY [facility] Stop: 10/14/18 08:59 Last Admin: 08/27/18 09:26 Dose: 81 mg Calcium/Vitamin D (Oscal W/Vitamin D) 1 tab PO BID [facility] Stop: 10/14/18 09:44 Last Admin: 08/27/18 16:53 Dose: 1 tab Clonazepam (Klonopin) 1 mg PO TID [facility]; Protocol Stop: 10/16/18 13:59 Last Admin: 08/27/18 22:00 Dose: 1 mg Docusate Sodium (Colace) 100 mg PO BID [facility] Stop: 10/14/18 08:59 Last Admin: 08/27/18 16:53 Dose: 100 mg Donepezil HCl (Aricept) 10 mg PO DAILY [facility] Stop: 10/22/18 08:59 Last Admin: 08/27/18 09:27 Dose: 10 mg Insulin Aspart (Novolog Insulin Sliding Scale) 0 units SUBQ ACHS [facility]; Protocol Stop: 10/14/18 11:29 Last Admin: 08/28/18 06:32 Dose: Not Given Lisinopril (Zestril) 40 mg PO DAILY [facility] Stop: 10/14/18 08:59 Last Admin: 08/27/18 09:28 Dose: Not Given Lorazepam (Ativan) 1 mg PO BID [facility]; Protocol PRN Reason: Anxiety Stop: 10/13/18 22:37 Last Admin: 08/26/18 16:39 Dose: 1 mg Magnesium Hydroxide (Milk Of Magnesia) 30 ml PO HS PRN PRN Reason: Constipation Olanzapine (Zyprexa) 2.5 mg PO BID [facility]; Protocol Stop: 10/24/18 16:59 Last Admin: 08/27/18 16:54 Dose: 2.5 mg Tamsulosin HCl (Flomax) 0.4 mg PO HS [facility] Stop: 10/14/18 20:59 Last Admin: 08/27/18 22:00 Dose: 0.4 mg Thiamine HCl (Vitamin B1) 100 mg PO DAILY [facility] Stop: 10/14/18 08:59 Last Admin: 08/27/18 09:28 Dose: 100 mg Tramadol HCl (Ultram) 25 mg PO Q6HR PRN PRN Reason: Pain (Severe) (LEVEL 7-10) Stop: 10/13/18 22:37 Last Admin: 08/24/18 20:54 Dose: 25 mg Vitamin D (Vitamin D3) 2,000 iu PO DAILY [facility] Stop: 10/14/18 08:59 Last Admin: 08/27/18 09:27 Dose: 2,000 iu Zolpidem Tartrate (Ambien) 5 mg PO HS PRN PRN Reason: Insomnia Stop: 10/13/18 22:29 Last Admin: 08/25/18 20:35 Dose: 5 mg General: Alert HEENT: Atraumatic, PERRLA, EOMI Neck: Supple, no JVD Cardiovascular: Regular rate, Normal S1, Normal S2 Lungs: Clear to auscultation Abdomen: Bowel sounds, Soft Extremities: no Clubbing, no Cyanosis, no Edema Assessment/Plan - Assessment Assessment: psychosis ... continue current treatment HTN .. elevated. Will order Clonidine. hepatic encephalopathy ... on lactulose PO chronic liver disease BPH right ulnar fracture dementia anxiety hypokalemia ... resolved. - Plan Plan: continue current orders Nutritional Asmnt/Malnutr-PDOC - Dietary Evaluation Malnutrition Findings (Please click <Entered> for more info): Nutritional Asmnt/Malnutrition Start: 08/15/18 14: 11 Text: Status: Complete Freq: Protocol: Document 08/15/18 14:11 YOVANY (Rec: 08/15/18 14:29 [email or web address] [email or web address]) Nutritional Asmnt/Malnutrition Patient General Information Nutritional Screening High Risk Diagnosis psychosis, confusion Pertinent Medical Hx/Surgical Hx HTN, metabolic encephalopathy, chronic liver disease, BPH, right ulnar fracture, dementia , anxiety, psychosis Subjective Information Pt seen in [facility] in the [place], very confused, not able to communicate. Per [employer], pt consumed about 50% of breakfast today. Pt needs total assist with meals. blood sugar 204 at admission noted. Current Diet Order/ Nutrition Support pureed Pertinent Medications oscal w/vit D, colace, novolog , seroquel, vit B1, vit D3 Pertinent Labs 08/14 Na 135, Cr 0.6, glucose 204, alb 3.5 Nutritional Hx/Data Height 1.6 m Height (Calculated Centimeters) 160.0 Current Weight (lbs) 54.431 kg Weight (Calculated Kilograms) 54.4 Weight (Calculated Grams) 95663.1 [place] Body Weight 124 Body Mass Index (BMI) 21.2 Weight Status Approriate GI Symptoms GI Symptoms None Last BM 08/14 Difficult in: None Skin Integrity/Comment: intact Current %PO Fair (50-74%) Estimated Nutritional Goals BEE in Kcals: Using Current wt Calories/Kcals/Kg 25-30 Kcals Calculated 1561-0468 Protein: Using Current wt Protein g/k Protein Calculated 55 Fluid: ml 1375-1650ml (1ml/kcal) Nutritional Problem 1. Problem Problem altered nutrition related labs Etiology hyperglycemia Signs/Symptoms: glucose 204 at admission Malnutrition Alert Is there a minimum of two criteria No selected? Query Text:Check all the applicable criteria. A minimum of two criteria are recommended for diagnosis of either severe or non-severe malnutrition. Malnutrition Related to Morbid Obesity Malnutrition related to morbid obesity No Intervention/Recommendation Comments 1. Continue with pureed diet as ordered. Monitor blood sugar. Consider NCS/CCHO diet if glucose continue high. 2. Monitor PO intake, wt, labs and skin integrity 3. F/U as moderate risk in 3-5 days, 08/18-08/20, PO check Expected Outcomes/Goals Expected Outcomes/Goals 1. PO intake to meet at least 75% of nutritional needs. 2. Wt stability, skin to remain intact, labs to approach WNL.
[2018-08-28] MEDS: Calcium Carb/Vit D 500 mg/200 U Tab PO SCH ×2 (09:21→17:01)
[2018-08-28] MEDS: Vitamin D3 2,000 IU SGL PO SCH (09:21)
[2018-08-28] MEDS: Multivitamin w/ Minerals Tab PO SCH (09:22)
[2018-08-28] MEDS: Venelex 60gm Tube TP SCH (14:02)
--- NOTE | 2018-08-28 22:30 | Progress Notes ---
DATE: 08/28/2018 SUBJECTIVE: Chart reviewed and the patient interviewed. Also, discussed the patient's condition with the staff and reviewed records and labs. The patient's affect is brighter. The patient continued to show improvement and he is trying to carry on conversation, but he is still confused. The patient also is less anxious and less irritable. Otherwise, the patient is compliant with taking his medications with no side effects of medications. ASSESSMENT: The patient is less psychotic and less agitated. TREATMENT PLAN: Continue to monitor his behavior and his condition closely. Also continue adjusting psychotropic medications. Also, working on discharge plans and placement issue. The patient is much improved. Hopefully, placement will be much easier at this time. JOB# [id number]
[2018-08-29] MEDS: INSULIN ASPART SLIDING SCALE 100 UNITS/ML UNIT SUBQ SCH ×2 (06:31→12:01)
--- NOTE | 2018-08-29 08:52 | General Progress Note ---
Subjective - Review of Systems Service Date: 08/29/18 Subjective: Awake, alert, but confused. T 97.9 BP 154/69 P 97 R 18 Objective - Results Result Diagrams: 08/14/18 20:30 08/19/18 07:05 Recent Labs: Laboratory Last Values WBC 6.6 Th/cmm (4.8-10.8) 08/14/18 20:30 RBC 3.96 Mil/cmm (3.80-5.80) 08/14/18 20:30 Hgb 11.6 gm/dL (12-16) L 08/14/18 20:30 Hct 35.2 % (41.0-60) L 08/14/18 20:30 MCV 88.9 fl (80-99) 08/14/18 20:30 MCH 29.3 pg (27.0-31.0) 08/14/18 20:30 MCHC Differential 33.0 pg (28.0-36.0) 08/14/18 20:30 RDW 12.0 % (11.5-20.0) 08/14/18 20:30 Plt Count 252 Th/cmm (150-400) 08/14/18 20:30 MPV 8.3 fl 08/14/18 20:30 Neutrophils % 74.6 % (40.0-80.0) 08/14/18 20:30 Lymphocytes % 15.0 % (20.0-50.0) L 08/14/18 20:30 Monocytes % 8.8 % (2.0-10.0) 08/14/18 20:30 Eosinophils % 0.9 % (0.0-5.0) 08/14/18 20:30 Basophils % 0.7 % (0.0-2.0) 08/14/18 20:30 Sodium 136 mEq/L (136-145) 08/19/18 07:05 Potassium 3.5 mEq/L (3.5-5.1) 08/19/18 07:05 Chloride 105 mEq/L (98-107) 08/19/18 07:05 Carbon Dioxide 24.9 mEq/L (21.0-31.0) 08/19/18 07:05 Anion Gap 9.6 (7.0-16.0) 08/19/18 07:05 BUN 15 mg/dL (7-25) 08/19/18 07:05 Creatinine 0.5 mg/dL (0.7-1.3) L 08/19/18 07:05 Est GFR ( Amer) TNP 08/19/18 07:05 Est GFR (Non-Af Amer) TNP 08/19/18 07:05 BUN/Creatinine Ratio 30.0 08/19/18 07:05 Glucose 106 mg/dL (70-105) H 08/19/18 07:05 Calcium 9.3 mg/dL (8.6-10.3) 08/19/18 07:05 Total Bilirubin 1.2 mg/dL (0.3-1.0) H 08/14/18 20:30 AST 38 U/L (13-39) 08/14/18 20:30 ALT 28 U/L (7-52) 08/14/18 20:30 Alkaline Phosphatase 106 U/L (34-104) H 08/14/18 20:30 Ammonia 52 umol/L (16-53) 08/17/18 10:21 Troponin I 0.03 ng/mL (0.01-0.05) 08/14/18 20:30 B-Natriuretic Peptide 44.2 pg/mL (5.0-100.0) 08/14/18 20:30 Total Protein 6.7 gm/dL (6.0-8.3) 08/14/18 20:30 Albumin 3.5 gm/dL (4.2-5.5) L 08/14/18 20:30 Globulin 3.2 gm/dL 08/14/18 20:30 Albumin/Globulin Ratio 1.1 (1.0-1.8) 08/14/18 20:30 Triglycerides 85 mg/dL (<150) 08/15/18 09:47 Cholesterol 125 mg/dL (<200) 08/15/18 09:47 LDL Cholesterol Direct 74 mg/dL (75-193) L 08/15/18 09:47 HDL Cholesterol 35 mg/dL (23-92) 08/15/18 09:47 TSH 1.20 uIU/ml (0.34-5.60) 08/14/18 20:30 - Physical Exam Vitals and I&O: Vital Signs Temp 98.5 F 08/29/18 04:48 Pulse 94 08/29/18 04:48 Resp 19 08/29/18 04:48 BP 106/72 08/29/18 04:48 Pulse Ox 95 08/29/18 04:48 Intake & Output 08/28/18 08/29/18 08/29/18 18:59 06:59 18:59 Intake Total 480 Balance 480 Intake: Oral 480 Other: # Voids 2 Active Medications: Current Medications Acetaminophen (Tylenol) 650 mg PO Q4HR PRN PRN Reason: Pain (Moderate) Stop: 10/13/18 22:37 Last Admin: 08/25/18 20:34 Dose: 650 mg Al Hydrox/Mg Hydrox/Simethicone (Maalox) 30 ml PO Q4HR PRN PRN Reason: GI DISTRESS Stop: 10/13/18 22:29 Amlodipine Besylate (Norvasc) 10 mg PO DAILY [facility] Stop: 10/14/18 08:59 Last Admin: 08/28/18 09:21 Dose: Not Given Aspirin (Ecotrin) 81 mg PO DAILY [facility] Stop: 10/14/18 08:59 Last Admin: 08/28/18 09:21 Dose: 81 mg Calcium/Vitamin D (Oscal W/Vitamin D) 1 tab PO BID [facility] Stop: 10/14/18 09:44 Last Admin: 08/28/18 17:01 Dose: 1 tab [place] Oil/[place] Balsam/Trypsin (Venelex) 1 appl TP DAILY [facility] Stop: 10/27/18 12:59 Last Admin: 08/28/18 14:02 Dose: 1 appl Clonazepam (Klonopin) 1 mg PO TID [facility]; Protocol Stop: 10/16/18 13:59 Last Admin: 08/28/18 22:00 Dose: 1 mg Docusate Sodium (Colace) 100 mg PO BID [facility] Stop: 10/14/18 08:59 Last Admin: 08/28/18 17:01 Dose: 100 mg Donepezil HCl (Aricept) 10 mg PO DAILY [facility] Stop: 10/22/18 08:59 Last Admin: 08/28/18 09:22 Dose: 10 mg Insulin Aspart (Novolog Insulin Sliding Scale) 0 units SUBQ ACHS [facility]; Protocol Stop: 10/14/18 11:29 Last Admin: 08/29/18 06:31 Dose: Not Given Lisinopril (Zestril) 40 mg PO DAILY [facility] Stop: 10/14/18 08:59 Last Admin: 08/28/18 09:22 Dose: Not Given Lorazepam (Ativan) 1 mg PO BID PRN; Protocol PRN Reason: Anxiety Stop: 10/13/18 22:37 Last Admin: 08/28/18 17:02 Dose: 1 mg Magnesium Hydroxide (Milk Of Magnesia) 30 ml PO HS PRN PRN Reason: Constipation Olanzapine (Zyprexa) 2.5 mg PO BID [facility]; Protocol Stop: 10/24/18 16:59 Last Admin: 08/28/18 17:01 Dose: 2.5 mg Tamsulosin HCl (Flomax) 0.4 mg PO HS [facility] Stop: 10/14/18 20:59 Last Admin: 08/28/18 22:00 Dose: 0.4 mg Thiamine HCl (Vitamin B1) 100 mg PO DAILY [facility] Stop: 10/14/18 08:59 Last Admin: 08/28/18 09:22 Dose: 100 mg Tramadol HCl (Ultram) 25 mg PO Q6HR PRN PRN Reason: Pain (Severe) (LEVEL 7-10) Stop: 10/13/18 22:37 Last Admin: 08/24/18 20:54 Dose: 25 mg Vitamin D (Vitamin D3) 2,000 iu PO DAILY [facility] Stop: 10/14/18 08:59 Last Admin: 08/28/18 09:21 Dose: 2,000 iu Zolpidem Tartrate (Ambien) 5 mg PO HS PRN PRN Reason: Insomnia Stop: 10/13/18 22:29 Last Admin: 08/29/18 01:57 Dose: 5 mg General: Alert HEENT: Atraumatic, PERRLA, EOMI Neck: Supple, no JVD Cardiovascular: Regular rate, Normal S1, Normal S2 Lungs: Clear to auscultation Abdomen: Bowel sounds, Soft Extremities: no Clubbing, no Cyanosis, no Edema Assessment/Plan - Assessment Assessment: psychosis ... continue current treatment HTN .. elevated. Will order Clonidine. hepatic encephalopathy ... on lactulose PO chronic liver disease BPH right ulnar fracture dementia anxiety hypokalemia ... resolved. - Plan Plan: continue current orders Nutritional Asmnt/Malnutr-PDOC - Dietary Evaluation Malnutrition Findings (Please click <Entered> for more info): Nutritional Asmnt/Malnutrition Start: 08/15/18 14: 11 Text: Status: Complete Freq: Protocol: Document 08/15/18 14:11 LCDASHG (Rec: 08/15/18 14:29 [email or web address] [email or web address]) Nutritional Asmnt/Malnutrition Patient General Information Nutritional Screening High Risk Diagnosis psychosis, confusion Pertinent Medical Hx/Surgical Hx HTN, metabolic encephalopathy, chronic liver disease, BPH, right ulnar fracture, dementia , anxiety, psychosis Subjective Information Pt seen in [facility] in the [facility], very confused, not able to communicate. Per MANAGER OF PROCUREMENT, pt consumed about 50% of breakfast today. Pt needs total assist with meals. blood sugar 204 at admission noted. Current Diet Order/ Nutrition Support pureed Pertinent Medications oscal w/vit D, colace, novolog , seroquel, vit B1, vit D3 Pertinent Labs 08/14 Na 135, Cr 0.6, glucose 204, alb 3.5 Nutritional Hx/Data Height 1.6 m Height (Calculated Centimeters) 160.0 Current Weight (lbs) 54.431 kg Weight (Calculated Kilograms) 54.4 Weight (Calculated Grams) 51349.1 Protection Body Weight 124 Body Mass Index (BMI) 21.2 Weight Status Approriate GI Symptoms GI Symptoms None Last BM 08/14 Difficult in: None Skin Integrity/Comment: intact Current %PO Fair (50-74%) Estimated Nutritional Goals BEE in Kcals: Using Current wt Calories/Kcals/Kg 25-30 Kcals Calculated [id number] Protein: Using Current wt Protein g/k Protein Calculated 55 Fluid: ml 1375-1650ml (1ml/kcal) Nutritional Problem 1. Problem Problem altered nutrition related labs Etiology hyperglycemia Signs/Symptoms: glucose 204 at admission Malnutrition Alert Is there a minimum of two criteria No selected? Query Text:Check all the applicable criteria. A minimum of two criteria are recommended for diagnosis of either severe or non-severe malnutrition. Malnutrition Related to Morbid Obesity Malnutrition related to morbid obesity No Intervention/Recommendation Comments 1. Continue with pureed diet as ordered. Monitor blood sugar. Consider NCS/CCHO diet if glucose continue high. 2. Monitor PO intake, wt, labs and skin integrity 3. F/U as moderate risk in 3-5 days, 08/18-08/20, PO check Expected Outcomes/Goals Expected Outcomes/Goals 1. PO intake to meet at least 75% of nutritional needs. 2. Wt stability, skin to remain intact, labs to approach WNL.
[2018-08-29] MEDS: Vitamin D3 2,000 IU SGL PO SCH (09:40)
[2018-08-29] MEDS: Calcium Carb/Vit D 500 mg/200 U Tab PO SCH (09:40)
[2018-08-29] MEDS: Multivitamin w/ Minerals Tab PO SCH (09:40)
[2018-08-29] MEDS: Venelex 60gm Tube TP SCH (09:45)
--- NOTE | 2018-08-30 15:47 | Discharge Summary ---
DATE OF DISCHARGE: 08/29/2018 PSYCHIATRIC DISCHARGE SUMMARY FINAL DIAGNOSIS/AND PRIMARY DIAGNOSIS: Unspecified psychosis. SECONDARY DIAGNOSIS: Dementia, moderate to severe, with behavior disturbances. REASON FOR HOSPITALIZATION: The patient was admitted to the hospital from [facility] because of increased agitation and irritability and inability to follow directions. The patient also was confused and aggressive. HOSPITAL COURSE: The patient continued to be agitated, aggressive, and confused. The patient also was not able to follow any of staff directions. The patient also was since nervous and he was unable to sit still and very confused. The patient was given Seroquel that did not help the patient much. Also, was given Klonopin, but still the patient was aggressive and agitated. Later on Seroquel changed with a dose stopped and the patient started on Zyprexa and the dose adjusted to 2.5 mg twice a day, 5 mg at bedtime. Gradually, the patient's affect was brighter. The patient was calmer, was easier to redirect. He was less aggressive and less agitated and the patient was discharged from the hospital. Physical exam of the patient basically showed no major medical problems except benign prostatic hypertrophy. AFTER DISCHARGE PLAN: The patient discharged from the hospital and went to a [facility] with plan to follow him up there. OUTCOME AFTER DISCHARGE: Guarded because of the patient's confusion. ROBERTS [place]# [id number]
== END 2018-08-29 14:30 | DRG 885 ==
LOC: ER 19:59 → GERO2 21:18
PROVIDERS: ADMIT Psychiatry & Neurology Psychiatry; ATTEND Psychiatry & Neurology Psychiatry
DX: F29 Unspecified psychosis not due to a substance or known physiological condition (principal); G93.41 Metabolic encephalopathy; F03.91 Unspecified dementia, unspecified severity, with behavioral disturbance; I10 Essential (primary) hypertension; N40.0 Benign prostatic hyperplasia without lower urinary tract symptoms; F41.9 Anxiety disorder, unspecified; D64.9 Anemia, unspecified; F32.9 Major depressive disorder, single episode, unspecified; K72.90 Hepatic failure, unspecified without coma; E87.6 Hypokalemia; Z79.82 Long term (current) use of aspirin
CPT/HCPCS: 36415-UA; 71045-TC; 80048-TC; 80053-TC; 80061-TC; 82140-TC; 83036-90; 83880-TC; 84443-TC; 84484-TC; 85025-TC; 93005; 97530; J1815; X3904; Z7610